=== PATIENT | male | born 1965 | race Caucasian/White ===

== ENCOUNTER 2024-06-10 10:32 | Day surgery (SDC) | payer OTHER, SELFPAY ==
[2024-06-10] VITALS (10 sets, daily range): BP systolic 88–125; BP diastolic 28–67; BMI 46.4
[2024-06-10 11:39] LABS: Hematocrit 27.3 % (39.0-52.0); Hemoglobin 8.8 g/dL (13.0-18.0); Mean Corp Hgb Conc. 32.2 g/dL (33.0-37.0); Mean Corpuscular Hgb 29.1 pg (27.0-31.0); Mean Corpuscular Volume 90.4 fL (80.0-94.0); Mean Platelet Volume 9.1 fL (7.4-10.4); Platelet Count 329 10^3/uL (130-400); Red Blood Cell Count 3.02 10^6/uL (4.70-6.10); Red Cell Dist. Width 16.4 % (11.5-14.5); White Blood Cell Count 8.6 10^3/uL (4.8-10.8)
[2024-06-10] MEDS: PERIDEX 0.12% ORAL RINSE 15 ML PO (11:44)
[2024-06-10] MEDS: BACTROBAN NASAL 1 GRAM NASAL (11:45)
[2024-06-10] MEDS: NSS 500 IV (11:45)
[2024-06-10 11:50] LABS: APTT 24.5 Sec (23.4-35.0); INR 1.13; PT 14.4 Sec (11.4-14.6)
[2024-06-10 12:30] LABS: Blood Urea Nitrogen 13 mg/dl (9-20); Calcium 9.3 mg/dl (8.4-10.2); Carbon Dioxide 25 mmol/L (22-30); Chloride 102 mmol/L (98-107); Estimated Creatinine Clearance 124 ml/min; Glucose 239 mg/dl (70-99); Potassium 4.7 mmol/L (3.5-5.1); Sodium 133 mmol/L (135-145); eGFR > 60.00
[2024-06-10] MEDS: NOVOLOG vial 3 UNITS SC ×2 (13:12→15:28)
[2024-06-10 13:19] LABS: Glucose - Point of Care 313 mg/dl (70-99)
--- NOTE | 2024-06-10 15:11 | W.SUR.PREOP ---
Pre-Operative Surgical Note
-
I have examined this patient prior to the performance of the scheduled procedure.
The patient's condition is unchanged from the time of the current History and
Physical and the patient is able to undergo the scheduled procedure.
--- NOTE | 2024-06-10 15:11 | OR.RPT ---
Operative Report
Operative Report
Date of Operation: 06/10/2024
Pre Op Diagnosis: Suspected temporal arteritis
Post Op Diagnosis: Suspected temporal arteritis
Procedure: BILATERAL temporal artery biopsies
Surgeon: Rajinder Spencer III, MD
Weft Straightener: Reji Quick MD PhD PGY-6
Anesthesia: Sedation/local
Complications: None
Estimated Blood Loss: Minimal
History and Indications for Procedure: 59-year-old male with symptom constellation concerning for temporal arteritis. We are asked to provide temporal artery biopsies.
Procedure in Detail: Dane Aguilar was correctly identified and placed supine on the operating table. After adequate induction of anesthesia the hair overlying the bilateral temporal regions was shaved. The temporal arteries were visualized using
ultrasound guidance bilaterally and appropriate skin incisions were marked bilaterally. The bilateral temporal regions were then prepped and draped in the usual sterile fashion. The patient received preoperative antibiotics. A timeout procedure
was performed with the nursing and anesthesia staff confirming the patient's identity as well as the nature and laterality of the procedure.
Bilateral temporal artery biopsies were performed one at a time in the same manner as follows: Local anesthesia was infiltrated into the skin and subcutaneous tissue at the skin sierra. A skin incision was made over the temporal skin sierra.
Electrocautery and sharp dissection were used to expose the temporal artery. After adequate length of temporal artery had been exposed within the wound bed the proximal and distal ends were ligated with silk ties and small metal clips. The
intervening artery segment was transected proximally and distally and removed. The artery segment was verbally identified according to laterality and passed off to the back table to be labeled and sent to pathology. The wound was then closely
inspected for hemostasis which was achieved. The wound was irrigated with saline solution.
Each wound was closed in layers. Skin glue was applied to each incision bilaterally.
The patient tolerated the procedure well and was taken to the recovery room in good condition.
Attestation: I was present and responsible for the entire procedure
Signed:
Rajinder Spencer III, MD
[facility]
[phone] ([phone])
--- NOTE | 2024-06-10 15:20 | W.SUR.POST ---
Surgical Immediate Post Op
Note
Pre Op Diagnosis: Giant cell arteritis
Post Op Diagnosis: Giant cell arteritis
Procedure Performed: Bilateral temporal artery biopsy
Primary Surgeon: Rajinder Spencer MD
Secondary Surgeons: Reji Quick MD, PhD
Anesthesia: Per Anesthesia
Estimated Blood Loss: 2 cc
Fluids: Per Anesthesia
Drains/Shunts: None
Specimens/Cultures: Temportal arteries x2
Doppler/Duplex/Angio (Y/N): No
Complications: None
Operative Findings: Bilateral temporal incisions and resection of temporal arteries
[2024-06-10 15:27] LABS: Glucose - Point of Care 304 mg/dl (70-99)
== END 2024-06-10 16:39 | disposition home or self-care (01) ==
LOC: CATH 10:32
PROVIDERS: ATTENDING PHYSICIAN Surgery Vascular Surgery; FAMILY PHYSICIAN Family Medicine; OTHER PHYSICIAN Internal Medicine Cardiovascular Disease
DX: Z09 Encounter for follow-up examination after completed treatment for conditions other than malignant neoplasm (principal); E11.9 Type 2 diabetes mellitus without complications; Z95.5 Presence of coronary angioplasty implant and graft; Z79.82 Long term (current) use of aspirin; Z79.84 Long term (current) use of oral hypoglycemic drugs; Z79.899 Other long term (current) drug therapy; Z79.01 Long term (current) use of anticoagulants; Z79.52 Long term (current) use of systemic steroids; H54.61 Unqualified visual loss, right eye, normal vision left eye
CPT/HCPCS: 37609; 88305; 80048; 82962; 85027; 85610; 85730; 88313; 93005

== ENCOUNTER 2024-07-03 13:34 | Emergency (ER) | payer OTHER, SELFPAY ==
[2024-07-03] VITALS (15 sets, daily range): BP systolic 82–129; BP diastolic 41–103; BMI 43.7
--- NOTE | 2024-07-03 13:38 | ED.PDOC.TRB ---
ED Provider Triage
-
Patient seen by provider in Triage?: Seen in Triage
Here with generalized weakness. History of anemia. Recently at [facility] for the same. Had recent transfusions. He was evaluated by GI had endoscopy and colonoscopy. He feels weak today. Outpatient labs showed hemoglobin of 6.5. Labs
ordered with type and screen
[2024-07-03 14:20] LABS: ALT (SGPT) 25 U/L (0-50); AST (SGOT) 38 U/L (17-59); Albumin 4.5 g/dl (3.5-5.0); Alkaline Phosphatase 87 U/L (38-126); Blood Urea Nitrogen 7 mg/dl (9-20); Calcium 9.3 mg/dl (8.4-10.2); Carbon Dioxide 16 mmol/L (22-30); Chloride 97 mmol/L (98-107); Glucose 294 mg/dl (70-99); Potassium 4.9 mmol/L (3.5-5.1); Sodium 132 mmol/L (135-145); Total Bilirubin 0.5 mg/dl (0.2-1.3); Total Protein 6.5 g/dl (6.3-8.2); eGFR > 60.00
[2024-07-03 14:27] LABS: % Basophils 0.3 % (0-2); % Immature Granulocytes 0.8 % (0-0.5); % Lymphocytes 4.6 % (20.5-51.1); % Monocytes 2.6 % (1.7-9.3); % Neutrophils 91.7 % (42.2-75.2); Absolute Immature Granulocytes 0.1 10^3/uL (0-0.05); Absolute Lymphocytes 0.3 10^3/uL (1.2-3.4); Absolute Monocytes 0.2 10^3/uL (0.1-0.6); Absolute Neutrophils 6.8 10^3/uL (1.4-6.5); Hematocrit 22.2 % (39.0-52.0); Hemoglobin 6.9 g/dL (13.0-18.0); Mean Corp Hgb Conc. 31.1 g/dL (33.0-37.0); Mean Corpuscular Hgb 28.3 pg (27.0-31.0); Mean Platelet Volume 9.6 fL (7.4-10.4); Nucleated Red Blood Cells % 0 % (-); Platelet Count 246 10^3/uL (130-400); Red Blood Cell Count 2.44 10^6/uL (4.70-6.10); Red Cell Dist. Width 16.6 % (11.5-14.5); White Blood Cell Count 7.4 10^3/uL (4.8-10.8)
--- NOTE | 2024-07-03 15:11 | ED.GENMED ---
History of Present Illness
General
Chief Complaint: Abnormal Lab Value
Time Seen by Provider: 07/03/24 15:06
History of Present Illness
History of Present Illness:
59-year-old male with history of COPD, sleep apnea, aortic stenosis status post valve replacement, CHF, CAD, hypertension, hyperlipidemia, jgr-kjkvgcj-touvrvdgh diabetes, and chronic anemia of uncertain origin presents to the emergency department
for evaluation of low hemoglobin. Patient has been worked up as an outpatient through [facility] for this anemia over the past 2 to 3 months, has undergone colonoscopy and endoscopy that were unrevealing and is scheduled to see hematology in
2 weeks. He also reports that he has had ongoing right jaw pain in the past 2 weeks, had a recent temporal artery biopsy due to symptoms of jaw claudication that was negative. He denies black or bloody stool. He is on Coumadin due to valve
replacement
Past History
Past History
ED Past Medical History: CAD, HTN, Hypercholesterolemia and NIDDM
Social History
Tobacco: Smoker
Alcohol: Daily
Personal: Single
Family History
Family History: Other (His father had an 'aneurysm.')
Review of Systems
Review of Systems
Allergies reviewed?: Yes
All Other Systems: ROS reviewed and negative except as documented in HPI and ROS
Phy Exam
Physical Exam
Physical Exam:
GEN: Well appearing, NAD, WDWN
HEENT: Oral mucosa moist, no scleral icterus
Cardiac: Regular rate and rhythm, murmur noted consistent with valve replacement
Lung: No respiratory distress, no tachypnea, lungs clear to auscultation bilaterally
MSK: No gross deformity or injuries
Skin: Good color, generally pale, no rashes
Neuro: AO x3, moves all extremities freely
Psych: Calm, cooperative
Course
Orders/Labs/Results
Orders:
Orders
07/03/24 13:46
Type+Screen Urgent
Complete Blood Count/With Diff Urgent
Comprehensive Metabolic Panel Urgent
Ferritin Urgent
Iron Urgent
Comment: FERRITIN,TIBC,IRON ADDED ON BY FLOOR 3:30PM 07-03-24
Total Iron Binding Urgent
07/03/24 15:29
Add On- LAB Urgent
Tests Added?: ferritin, TIBC, iron
Blood Bank Products [* Blood Bank Products] Urgent
Blood Bank Products: *Packed RBC Leuko(PRBC's)
Quantity: 2
Transfuse Today: Yes
Reason: Anemia
CT Facial Bones W/ Iv Contrast Urgent
Comment:
Reason For Exam: R mandibular dental infection
07/03/24 15:33
Oxycodone [Roxicodone] 10 mg PO NOW STA
07/03/24 15:45
Prothrombin Time Urgent
07/03/24 20:27
Oxycodone [Roxicodone] 10 mg PO NOW STA
Abnormal Lab Results
07/03/24 07/03/24
13:46 15:45
RBC 2.44 L 10^6/uL
(4.70-6.10)
Hgb 6.9 L* g/dL
(13.0-18.0)
Hct 22.2 L %
(39.0-52.0)
MCHC 31.1 L g/dL
(33.0-37.0)
RDW 16.6 H %
(11.5-14.5)
Abs Immat Gran (auto) 0.1 H 10^3/uL
(0-0.05)
Absolute Neuts (auto) 6.8 H 10^3/uL
(1.4-6.5)
Absolute Lymphs (auto) 0.3 L 10^3/uL
(1.2-3.4)
Immature Gran % 0.8 H %
(0-0.5)
Neutrophils % 91.7 H %
(42.2-75.2)
Lymphocytes % 4.6 L %
(20.5-51.1)
PT 40.2 H Sec
(11.4-14.6)
Sodium 132 L mmol/L
(135-145)
Chloride 97 L mmol/L
(98-107)
Carbon Dioxide 16 L mmol/L
(22-30)
BUN 7 L mg/dl
(9-20)
Glucose 294 H mg/dl
(70-99)
TIBC 490 H ug/dl
(261-462)
Ferritin 11.8 L ng/ml
(17.9-464.0)
Crossmatch IS Only See Detail
07/03/24 13:46
07/03/24 13:46
Vital Signs
Initial and Last Documented VS:
Initial Vital Signs
Temp Pulse Resp BP Pulse Ox
99.1 F 114 18 124/69 97
07/03/24 13:36 07/03/24 13:36 07/03/24 13:36 07/03/24 13:36 07/03/24 13:36
Last Documented Vital Signs
Temp Pulse Resp BP Pulse Ox
98.2 F 99 17 129/56 97
07/03/24 20:26 07/03/24 20:26 07/03/24 20:26 07/03/24 20:26 07/03/24 18:17
MDM/Problems Addressed
MDM/Problems Addressed:
Patient has undergone extensive outpatient workup for anemia through gastroenterology with upper and lower endoscopy. Do not see any indication for admission at this point given that he is clinically stable and improved with blood transfusions,
there is no evidence at this time of blood loss anemia. Recommend outpatient hematology follow-up. In regards of his jaw pain he had a previous outpatient temporal artery biopsy that was negative, there is evidence of a gingival erosion with
exposed bony tissue to the right lower jaw, patient is status post dental extractions, CT shows no evidence for abscess. He will need to follow-up with a dentist to evaluate this further, due to his extensive medical history will treat with
prophylactic antibiotic
*Critical Care Note
Total Time (30-74mins, 75-104mins- exclusive of procedures): Not Applicable
ED Attending Note
-
Portions of this chart may have been created with voice recognition software.� Occasional wrong word or��sound alike� substitutions may have occurred due to the inherent limitations of voice recognition software.
Discharge Plan
Departure
Patient Disposition: Home (Routine Discharge)
Date of Disposition: 07/03/24
Time of Disposition: 20:27
Patient with high blood pressure during this ER visit?: No
Discharge Problem:
Iron deficiency anemia
Instructions: Anemia caused by low iron in adults - Discharge instructions
Prescriptions:
New
amoxicillin 500 mg capsule
500 mg PO BID Qty: 14 0RF
No Action
aspirin 81 MG tablet,delayed release (DR/EC)
81 mg PO DAILY
metformin 1,000 MG tablet
1,000 mg PO BIDWMEAL
carvedilol 6.25 MG tablet
6.25 mg PO BID
warfarin 2.5 mg Tablet
7.5 mg PO SUMOWETHFRSA
citalopram [Celexa] 20 mg Tablet
20 mg PO DAILY
glyburide 5 mg tablet
5 mg PO BID
albuterol sulfate 90 mcg/actuation Hfa Aerosol Inhaler
2 puff INHALATION R Q6HPRN PRN (Reason: sob/wheezing)
lisinopril 2.5 mg Tablet
2.5 mg PO DAILY
pantoprazole [Protonix] 40 mg Tablet,Delayed Release (Dr/Ec)
40 mg PO BID
atorvastatin 10 mg tablet
10 mg PO HS
indapamide 2.5 mg tablet
2.5 mg PO DAILYPRN PRN (Reason: feet swelling)
prednisone 20 mg tablet
20 mg PO DAILY
warfarin 2.5 mg tablet
5 mg PO TU
amlodipine 5 mg tablet
5 mg PO DAILY
ferrous sulfate 325 mg (65 mg iron) tablet
325 mg PO DAILY
folic acid 1 mg Tablet
1 mg PO DAILY
Visbiome 112.5 billion cell Capsule
1 cap PO BID
Referrals:
Nik Lr MD [Family Provider] -
Activity Restrictions/Additional Instructions:
Follow up with your billboard mechanic
Have your hemoglobin rechecked in 3-5 days
Interventions
Interventions:
*Risk Screen - Suicide Last Done: 07/03/24 13:41
*General Assessment Last Done: 07/03/24 13:41
*Neglect/Abuse Screening Last Done: 07/03/24 13:41
ED- Fall Risk Assessment Last Done: 07/03/24 15:22
*Nursing Disposition Last Done: 07/03/24 20:44
Discharge Date and Time
Discharge Date/Time: 07/03/24 20:45
Print Language: CITIZEN OF [place]
[2024-07-03] MEDS: ROXICODONE 10 MG PO ×2 (15:42→20:32)
[2024-07-03 16:02] LABS: Iron 123 ug/dl (49-181)
[2024-07-03 16:11] LABS: Percent Saturation 25 % (20-50); Total Iron Binding Capacity 490 ug/dl (261-462)
[2024-07-03 16:15] LABS: INR 4.06; PT 40.2 Sec (11.4-14.6)
[2024-07-03 16:47] LABS: Ferritin 11.8 ng/ml (17.9-464.0)
== END 2024-07-03 20:45 | disposition home or self-care (01) ==
LOC: EMR 13:34
PROVIDERS: Physician Assistant; EMERGENCY PHYSICIAN Emergency Medicine; FAMILY PHYSICIAN Family Medicine
DX: D50.9 Iron deficiency anemia, unspecified (principal); R68.84 Jaw pain; E11.9 Type 2 diabetes mellitus without complications; J44.9 Chronic obstructive pulmonary disease, unspecified; G47.30 Sleep apnea, unspecified; I35.0 Nonrheumatic aortic (valve) stenosis; I11.0 Hypertensive heart disease with heart failure; I50.9 Heart failure, unspecified; E78.5 Hyperlipidemia, unspecified; F17.200 Nicotine dependence, unspecified, uncomplicated; Z95.2 Presence of prosthetic heart valve; Z79.84 Long term (current) use of oral hypoglycemic drugs; Z79.82 Long term (current) use of aspirin; Z88.8 Allergy status to other drugs, medicaments and biological substances; Z91.018 Allergy to other foods
CPT/HCPCS: 99285; 36430; 70487; 80053; 82728; 83540; 83550; 85025; 85610; 86850; 86900; 86901; 86920; P9016; Q9967

== ENCOUNTER 2024-07-13 16:37 | Inpatient (IN) | payer OTHER, SELFPAY ==
[2024-07-13] VITALS (27 sets, daily range): BP systolic 59–128; BP diastolic 24–85; BMI 44.6
[2024-07-13] MEDS: NSS 1000 IV (13:32)
[2024-07-13 13:35] LABS: % Basophils 0.1 % (0-2); % Immature Granulocytes 2.8 % (0-0.5); % Lymphocytes 9.3 % (20.5-51.1); % Monocytes 7.2 % (1.7-9.3); % Neutrophils 80.6 % (42.2-75.2); Absolute Immature Granulocytes 0.4 10^3/uL (0-0.05); Absolute Lymphocytes 1.3 10^3/uL (1.2-3.4); Absolute Neutrophils 11.4 10^3/uL (1.4-6.5); Hematocrit 18.9 % (39.0-52.0); Hemoglobin 5.8 g/dL (13.0-18.0); Mean Corp Hgb Conc. 30.7 g/dL (33.0-37.0); Mean Corpuscular Hgb 28.3 pg (27.0-31.0); Mean Corpuscular Volume 92.2 fL (80.0-94.0); Mean Platelet Volume 9.7 fL (7.4-10.4); Nucleated Red Blood Cells % 0.8 % (-); Platelet Count 323 10^3/uL (130-400); Red Blood Cell Count 2.05 10^6/uL (4.70-6.10); Red Cell Dist. Width 19.7 % (11.5-14.5); White Blood Cell Count 14.1 10^3/uL (4.8-10.8)
[2024-07-13 13:43] LABS: APTT 49.7 Sec (23.4-35.0)
--- NOTE | 2024-07-13 13:53 | ED.GENMED ---
History of Present Illness
General
Chief Complaint: Abnormal Lab Value
Time Seen by Provider: 07/13/24 13:04
History of Present Illness
History of Present Illness:
59-year-old male with history of COPD, sleep apnea, aortic stenosis status post valve replacement, CHF, CAD, hypertension, hyperlipidemia, irg-xasvpwt-hxeuedrdf diabetes, and chronic anemia of uncertain origin presents to the emergency department
for evaluation of low hemoglobin. Patient has been worked up as an outpatient through [facility] for this anemia over the past 2 to 3 months, has undergone colonoscopy and endoscopy that were unrevealing and is scheduled to see hematology in
1 week. Patient returns today after her visit here 9 days ago for recurrent symptoms of anemia. He has had multiple near syncopal events and multiple falls in the past few days. He is scheduled to see gastroenterology tomorrow. Notes that his
prior jaw pain that was noted on his last visit has improved while on antibiotics and after a dental procedure.
On arrival the patient is noted to be profoundly hypotensive and pale appearing. He appears fatigued but is otherwise alert.
Past History
Past History
ED Past Medical History: CAD, HTN, Hypercholesterolemia and NIDDM
Social History
Tobacco: Smoker
Alcohol: Daily
Personal: Single
Family History
Family History: Other (His father had an 'aneurysm.')
Review of Systems
Review of Systems
Allergies reviewed?: Yes
All Other Systems: ROS reviewed and negative except as documented in HPI and ROS
Phy Exam
Physical Exam
Physical Exam:
GEN: Pale, ill-appearing
HEENT: Oral mucosa moist, no scleral icterus
Cardiac: Regular rate
Lung: No respiratory distress, no tachypnea
Rectal: Black stool, heme positive
MSK: No gross deformity or injuries
Skin: Good color, no pallor or jaundice, no rashes
Neuro: AO x3, moves all extremities freely
Psych: Calm, cooperative
Course
Orders/Labs/Results
Orders:
Orders
07/13/24 13:09
Type+Screen Urgent
Complete Blood Count/With Diff Urgent
Comprehensive Metabolic Panel Urgent
Ferritin Urgent
Comment: ADD ON
Iron Urgent
Comment: ADD ON
PTT Urgent
Prothrombin Time Urgent
Is patient on Coumadin/Warfarin?: Unknown
Total Iron Binding Urgent
Comment: ADD ON
07/13/24 13:37
Blood Bank Products [* Blood Bank Products] Urgent
Blood Bank Products: *Packed RBC Leuko(PRBC's)
Quantity: 2
Transfuse Today: Yes
Reason: Anemia
07/13/24 13:43
Add On- LAB Urgent
Tests Added?: iron, TIBC, ferritin
07/13/24 13:45
0.9% Sodium Chloride 1000 ml [Nss] 1,000 ml IV Wide Open mls/hr
07/13/24 13:58
Emergent Blood Release Stat
Blood Bank Products: *Packed RBC Leuko(PRBC's)
Quantity: 1
Reason: Bleeding
A Blood Permit is Required for all Blood.
FOR LAB PICKUP:
Take order sheet to Blood Bank to slate picker blood products in validated cooler
Immediately return to patient care area.
Blood products released by
Blood Products picked up by
Sent to
Date and Time
07/13/24 14:05
Electrocardiogram (*1) Urgent
Reason for Study: Syncope
EKG- Treatment ONCE
07/13/24 14:06
Add On- LAB Urgent
Tests Added?: PT INR
07/13/24 14:39
Pantoprazole [Protonix IV] 80 mg IV NOW STA
07/13/24 14:45
Pantoprazole 80 mg/100 ml Nss [Protonix] 80 mg in 100 ml IV Q10H
07/13/24 14:54
Oxycodone [Roxicodone] 7.5 mg PO NOW STA
07/13/24 15:35
Blood Bank Products [* Blood Bank Products] Urgent
Blood Bank Products: *Fresh Frozen Plasma
Quantity: 2
Transfuse Today: Yes
Reason: Bleeding
07/13/24 15:48
Admit/Transfer Patient As Directed
Co-Sign Provider:
Level of Care: Inpatient admission
Assign to:: IMU- Intermediate Care
Physician / Group: Hospitalist
Diagnosis: Anemia
Reason for Hospitalization: .
Expected length of stay greater than two midnights?: Yes
ELOS- Estimated Length of Stay in days: 3
I certify the patient meets the requirements for IP care: Yes
07/13/24 15:50
Code Status As Directed
Resuscitation Status: Full Code
Abnormal Lab Results
07/13/24
13:09
WBC 14.1 H 10^3/uL
(4.8-10.8)
RBC 2.05 L 10^6/uL
(4.70-6.10)
Hgb 5.8 L* g/dL
(13.0-18.0)
Hct 18.9 L* %
(39.0-52.0)
MCHC 30.7 L g/dL
(33.0-37.0)
RDW 19.7 H %
(11.5-14.5)
Abs Immat Gran (auto) 0.4 H 10^3/uL
(0-0.05)
Absolute Neuts (auto) 11.4 H 10^3/uL
(1.4-6.5)
Absolute Monos (auto) 1.0 H 10^3/uL
(0.1-0.6)
Immature Gran % 2.8 H %
(0-0.5)
Neutrophils % 80.6 H %
(42.2-75.2)
Lymphocytes % 9.3 L %
(20.5-51.1)
PT 90.1 H Sec
(11.4-14.6)
INR > 8.0 H* D
APTT 49.7 H Sec
(23.4-35.0)
Sodium 129 L mmol/L
(135-145)
Potassium 5.3 H mmol/L
(3.5-5.1)
Chloride 96 L mmol/L
(98-107)
Carbon Dioxide 17 L mmol/L
(22-30)
BUN 27 H mg/dl
(9-20)
Glucose 285 H mg/dl
(70-99)
TIBC 475 H ug/dl
(261-462)
% Saturation 10 L %
(20-50)
Ferritin 12.2 L ng/ml
(17.9-464.0)
Total Protein 6.0 L g/dl
(6.3-8.2)
Crossmatch IS Only See Detail
07/13/24 13:09
07/13/24 13:09
Vital Signs
Initial and Last Documented VS:
Initial Vital Signs
Temp Pulse Resp BP Pulse Ox
97.8 F 98 20 103/58 100
07/13/24 12:42 07/13/24 12:42 07/13/24 12:42 07/13/24 12:42 07/13/24 12:42
Last Documented Vital Signs
Temp Pulse Resp BP Pulse Ox
97.4 F 87 14 106/51 100
07/13/24 16:21 07/13/24 16:21 07/13/24 16:21 07/13/24 16:21 07/13/24 16:21
MDM/Problems Addressed
MDM/Problems Addressed:
In summary this is a 59-year-old male with an unknown source of recurrent anemia. He was last seen here 9 days ago and given 2 units however his hemoglobin has down trended despite that transfusion. Although he had relatively recent upper and
lower endoscopies we must consider the possibility of recurrent GI bleed. His stool is heme positive but he is on oral iron so this is potentially a false positive. Patient was markedly hypotensive in the emergency department, refractory to
aggressive IV fluid resuscitation thus required emergent transfusion of O- blood products as he was recurrently syncopized and in the ED. Interestingly his blood pressure improved dramatically upon initiation of the first unit of blood and he
remained clinically stable thereafter. His INR is noted to be greater than 8, I discussed this with both cardiology as well as admitting team regarding appropriate next steps and the decision was made to administer 2 units of FFP to achieve some
degree of coagulopathy reversal but potentially minimizing the risks of clotting in the setting of his mechanical heart valve. Will be admitted to the hospitalist service for further evaluation and management
*Critical Care Note
Total Time (30-74mins, 75-104mins- exclusive of procedures): 80 minutes
comment:
Critical care time: 80 minutes
Critical care time was exclusive of: Separately billable procedures, treating other patients, and teaching time
Critical care was necessary to treat or prevent imminent or life-threatening deterioration of the following conditions: Hemorrhagic shock
Critical care time spent personally by me on the following activities:
[x] Review of old charts
[x] Obtaining history from patient or surrogate
[x] Ordering and review of the laboratory studies
[x] Ordering and review of radiographic studies
[x] Ordering and performing treatments and interventions
[x] Patient patient's response to treatment
[x] Development of treatment plan with patient or surrogate
Update Note
Update Note:
1350: Pt with repeated syncopal events, BP 41/24 despite supine positioning. Called blood bank, type and screen will complete in 15 mins. Emergent blood ordered for 1 unit of O neg due to severe hemodynamic instability and lack of improvement with
IVF
1404: Pt still mentating, BP unchanged with continued fluids. Awaiting emergent blood release
1415: Emergent blood at bedside. BP 59/24.
1431: BP markedly improved
1513: Discussed via [employer] w/ cardiology regarding possible INR reversal. At this point the patient is stable, and there has not been clear evidence for rapid/uncontrolled bleeding. Per cardiology, reversal can be considered if outweighs risk
of clotting in the setting of a mechanical valve. Will d/w admitting team
ED Attending Note
-
Portions of this chart may have been created with voice recognition software.� Occasional wrong word or��sound alike� substitutions may have occurred due to the inherent limitations of voice recognition software.
Discharge Plan
Departure
Patient Disposition: Admit
Date of Disposition: 07/13/24
Time of Disposition: 15:35
Admit to: ICU
Presentation/result/management discussed w/ accepting MD/DO: Hospitalist
Discharge Problem:
Acute blood loss anemia (ABLA), Hemorrhagic shock
Interventions
Interventions:
*Risk Screen - Suicide Last Done: 07/13/24 14:12
*General Assessment Last Done: 07/13/24 14:12
*Neglect/Abuse Screening Last Done: 07/13/24 14:12
ED- Fall Risk Assessment Last Done: 07/13/24 13:05
*ED COVID-19 Vaccine History Last Done: 07/13/24 14:12
[2024-07-13 14:05] LABS: ALT (SGPT) 27 U/L (0-50); AST (SGOT) 37 U/L (17-59); Albumin 4.1 g/dl (3.5-5.0); Alkaline Phosphatase 68 U/L (38-126); Blood Urea Nitrogen 27 mg/dl (9-20); Carbon Dioxide 17 mmol/L (22-30); Chloride 96 mmol/L (98-107); Estimated Creatinine Clearance 121 ml/min; Glucose 285 mg/dl (70-99); Potassium 5.3 mmol/L (3.5-5.1); Sodium 129 mmol/L (135-145); Total Bilirubin 0.4 mg/dl (0.2-1.3); eGFR > 60.00
[2024-07-13 14:25] LABS: PT 90.1 Sec (11.4-14.6)
[2024-07-13 14:28] LABS: Iron 50 ug/dl (49-181)
[2024-07-13 14:37] LABS: Percent Saturation 10 % (20-50); Total Iron Binding Capacity 475 ug/dl (261-462)
[2024-07-13 14:40] LABS: INR > 8.0
[2024-07-13] MEDS: PROTONIX 100 IV (14:47)
[2024-07-13] MEDS: PROTONIX IV 80 MG IV (14:47)
[2024-07-13] MEDS: ROXICODONE 7.5 MG PO (14:58)
--- NOTE | 2024-07-13 15:28 | HPS.HSE ---
Family Physician
-
Family Physician: Nik Lr
Chief Complaint
-
Symptomatic anemia with fainting episodes at home
History of Present Illness
59 years old male who was brought into the emergency room by his sister for feeling weakness and having low hemoglobin. Patient has history of anemia with gastrointestinal bleeding. He reported that he had multiple fainting episodes at home and
was not feeling well in the last few days. In the emergency room, he was significantly hypotensive with a blood pressure 65/37 and was having altered mentation, in and out of consciousness during examination. Patient was immediately resuscitated
with IV fluid and blood transfusion, his blood pressure improved to systolic blood pressure 114/49. He did not need vasopressors. His mentation improved and he was able to give a history.
Patient reported history of back stools at times, no increased frequency and he was not sure because he takes iron pills. No rectal bleeding. He had recent upper and lower endoscopic evaluation addition to capsule endoscopy evaluation at [facility] around April 2024. He was told that he he might have minor leak in his intestine. He was also advised to follow with community educator in the outpatient setting. Patient was recently taking prednisone for suspected temporal arteritis that was
later ruled out by biopsy result. He stopped the steroid therapy. He denied nausea, vomiting or abdominal pain.
Medical History
Past Medical History
Past Medical History: Reports Other (Coronary artery disease, sleep apnea, tobacco abuse, obesity, hypertension, hyperlipidemia, diabetes, aortic stenosis, history of GI bleeding)
Past Surgical History: Reports Other (No recent major surgery)
Social History
Tobacco: Former Smoker
Alcohol: Daily
Drug: None
Personal:
Living: With Family
Employment: Employed (He works from home)
Family History
Family History: Other (Father had aortic aneurysm.)
Allergies / Home Medications
Allergies reflects when Allergies were last updated in [employer].
Home Medications with original date entered in [employer]
Allergy/Medication List:
Allergies
Allergy/AdvReac Type Severity Reaction Status Date / Time
atorvastatin calcium Allergy PAIN Verified 07/13/24 12:45
[From Lipitor]
dapagliflozin [From Farxiga] Allergy Rash Verified 07/13/24 12:45
fish derived Allergy THROAT Verified 07/13/24 12:45
ITCHED
nitroglycerin Allergy hypotension Verified 07/13/24 12:45
Home Medications
aspirin 81 mg tablet,delayed release 81 mg PO DAILY Blood clot prevention/tx 07/24/13
metformin 1,000 mg tablet 1,000 mg PO BID Diabetes 08/29/13
carvedilol 6.25 mg tablet 6.25 mg PO BID heart condition 04/02/21
citalopram 20 mg tablet (Celexa) 20 mg PO DAILY Mental Health/Anxiety 09/16/22
warfarin 2.5 mg tablet 7.5 mg PO SUMOWEFRSA Blood clot prevention/tx 09/16/22
glyburide 5 mg tablet 5 mg PO BID Diabetes 09/18/22
albuterol sulfate 90 mcg/actuation aerosol inhaler 2 puff inhalation R Q6HPRN PRN sob/wheezing 06/06/24
lisinopril 2.5 mg tablet 2.5 mg PO DAILY 06/06/24
Lactobac no.2-Bifidobac no.1-S. thermo 112.5 billion cell capsule (Visbiome) 1 cap PO BID 07/03/24
amlodipine 5 mg tablet 5 mg PO DAILY 07/03/24
atorvastatin 10 mg tablet 10 mg PO HS 07/03/24
ferrous sulfate 325 mg (65 mg iron) tablet 325 mg PO DAILY 07/03/24
folic acid 1 mg tablet 1 mg PO DAILY 07/03/24
indapamide 2.5 mg tablet 2.5 mg PO DAILYPRN PRN feet swelling 07/03/24
warfarin 2.5 mg tablet 5 mg PO TU 07/03/24
Magic Mouth Wash 15 ml mucous membrane BID 07/13/24
amoxicillin 500 mg capsule 500 mg PO Q8H 07/13/24
benzocaine 10 % mucosal gel 1 applic mucous membrane BID 07/13/24
hydrocodone 7.5 mg-acetaminophen 300 mg tablet 1 tab PO Q6HPRN PRN severe tooth pain 07/13/24
Review of Systems
-
History Source: Patient
A 12 point ROS was completed and negative except as noted: Yes
Constitutional: Reports Fatigue; Denies Fever or Chills
EENT: Denies Sore Throat
Respiratory: Denies Cough or Trouble Breathing
Cardiac: Denies Chest Pain
Abdomen/GI: Reports Black Stools; Denies Abdominal Pain, Nausea, Vomiting or Bloody Stools
: Denies Dysuria or Frequency
Musculoskeletal: Denies Joint Swelling
Skin: Denies Itching or Rash
Neurological: Reports Weakness
Endocrine: Denies Temp Intolerance
Hematologic/Lymphatic: Denies Bruising
Psych: Denies Anxiety
Physical Exam
Vital Signs
Vital Signs
Temp Pulse Resp BP Pulse Ox
97.3 F 89 19 99/56 100
07/13/24 14:34 07/13/24 14:34 07/13/24 14:34 07/13/24 14:34 07/13/24 14:34
Physical Exam
General: Comfortable and Conversant
HEENT: Anicteric, Moist mucous membranes and Atraumatic
Respiratory: Clear
Cardiac: S1/S2 and Other (Positive mechanical click)
GI: Soft, Non Tender, Non Distended and Normal Bowel Sounds
Musculoskeletal: No Clubbing, No Cyanosis and No Edema
Skin: Warm; No Jaundice
Neuro: AO x 3 and Nonfocal/grossly intact
Psych: Calm and Intact Judgment/Insight
Laboratory Results
-
07/13/24 13:09
07/13/24 13:09
Laboratory Results
PT 90.1 Sec (11.4-14.6) H 07/13/24 13:09
INR > 8.0 H* D 07/13/24 13:09
APTT 49.7 Sec (23.4-35.0) H 07/13/24 13:09
Total Bilirubin 0.4 mg/dl (0.2-1.3) 07/13/24 13:09
AST 37 U/L (17-59) 07/13/24 13:09
ALT 27 U/L (0-50) 07/13/24 13:09
Alkaline Phosphatase 68 U/L (38-126) 07/13/24 13:09
Impression/Plan
-
#Hemorrhagic shock due to acute on chronic blood loss anemia, exacerbated by use of blood pressure medications
Hypercoagulopathy secondary to Coumadin use with recent use of prednisone
Seems to stabilized after volume replacement. Monitor in IMU
Hold Coumadin, give FFP, recheck INR
IV Protonix, although patient denied abdominal pain but he reported history of prednisone intake. He takes aspirin for coronary artery disease
Hold blood pressure medications for now
Patient did not need pressure support medications
Continue blood transfusion, order 3 units total, repeat complete blood count after transfusion
# Acute on chronic blood loss anemia exacerbated by use of Coumadin, aspirin. Hemoglobin on presentation 5.8, last hemoglobin in June 12 was 6.9.
Patient has history of black stools/melena. Status post workup in last 6 months according to the patient and [facility], we do not have records of the results. Per patient, no source found but was told minor leak in the intestine.
Patient denied nausea, vomiting, abdominal pain. No recent diarrhea. No active rectal bleeding. So utility of bleeding scan is limited in the setting.
Will consult GI for further management.
Consult cardiology. Primary harvesting contractor Dr. Downing.
# Leukocytosis reactive. No fever
# Hyponatremia
Patient is not to have low sodium. Will monitor and repeat BMP he seems to be fully oriented and following commands
#Hyperkalemia, monitor on telemetry. Do EKG. Control hyperglycemia.
Repeat BMP
Give Lokelma
# Mild metabolic acidosis, likely secondary to shock.
Check lactic acid
# Recent steroid therapy for presumed giant cell arteritis that was later ruled out by biopsy
#History of Nonrheumatic aortic (valve) stenosis status post [place] mechanical AVR 04/07/2021
He takes Coumadin daily.
#History of obstructive sleep apnea. Noncompliant with CPAP
#Former smoker
#Morbid obesity, BMI 44
#Type 2 diabetes
Avoid hypoglycemia
Hold metformin
Order insulin sign scale
#History of essential hypertension. Hold blood pressure medication while hypotensive and reintroduce once stabilizes
#History of left carotid artery stenosis
#History of hyperlipidemia
# History of coronary artery disease. No chest pain. Monitor on telemetry
Total critical time spent to see the patient, examine the patient on the floor, review data and lab results, and discuss the treatment plan with the patient, consultants, ED doctor and nursing staff around 120 minutes
[2024-07-13 16:35] LABS: Ferritin 12.2 ng/ml (17.9-464.0)
[2024-07-13] MEDS: LOKELMA 10 GRAM PO (18:46)
[2024-07-13] MEDS: ROXICODONE 5 MG PO ×2 (18:46→22:53)
[2024-07-13 19:01] LABS: Glucose - Point of Care 223 mg/dl (70-99)
[2024-07-13] MEDS: NOVOLOG FLEXPEN-MODERATE RESISTANCE 3 UNITS SC (19:08)
[2024-07-13] MEDS: LIPITOR PO (20:55)
--- NOTE | 2024-07-13 21:06 | PTCARENOTE ---
Pt received at 19:00. Pt AOx3, pleasant. HR 95, SR. Palpable pulses. RA, breath sounds clear. 2nd unit FFP transfused, and 2nd unit PRBCs transfusing. Safe environment maintained, call linares within reach.
[2024-07-13] MEDS: AMOXIL 500 MG PO (21:56)
[2024-07-13 23:07] LABS: Glucose - Point of Care 227 mg/dl (70-99)
[2024-07-14] VITALS (12 sets, daily range): BP systolic 97–130; BP diastolic 36–99
[2024-07-14] MEDS: PROTONIX 100 IV ×3 (00:27→20:33)
[2024-07-14 00:52] LABS: Hematocrit 21.1 % (39.0-52.0); Hemoglobin 6.9 g/dL (13.0-18.0)
[2024-07-14 01:01] LABS: Blood Urea Nitrogen 19 mg/dl (9-20); Calcium 8.7 mg/dl (8.4-10.2); Carbon Dioxide 21 mmol/L (22-30); Chloride 100 mmol/L (98-107); Estimated Creatinine Clearance 121 ml/min; Glucose 156 mg/dl (70-99); Potassium 4.3 mmol/L (3.5-5.1); Sodium 133 mmol/L (135-145); eGFR > 60.00
--- NOTE | 2024-07-14 01:31 | W.PN.UPDATE ---
Addendum entered and electronically signed by BRIANNA العراقي 07/14/24 05:11:
correction INR >8 at 1PM
Original Note:
Update Note
Progress Note Update
hgb 6.9 at MN, INR 1PM, patient stable, VS stable, will order one unit of PRBC, labs in AM.
[2024-07-14] MEDS: ROXICODONE 5 MG PO ×5 (02:56→21:33)
[2024-07-14 06:16] LABS: Hematocrit 22.6 % (39.0-52.0); Hemoglobin 7.5 g/dL (13.0-18.0); Mean Corp Hgb Conc. 33.2 g/dL (33.0-37.0); Mean Corpuscular Hgb 29.3 pg (27.0-31.0); Mean Corpuscular Volume 88.3 fL (80.0-94.0); Mean Platelet Volume 9.4 fL (7.4-10.4); Platelet Count 147 10^3/uL (130-400); Red Blood Cell Count 2.56 10^6/uL (4.70-6.10); Red Cell Dist. Width 16.9 % (11.5-14.5); White Blood Cell Count 5.8 10^3/uL (4.8-10.8)
[2024-07-14 06:24] LABS: PT 46.7 Sec (11.4-14.6)
[2024-07-14 06:39] LABS: Blood Urea Nitrogen 17 mg/dl (9-20); Calcium 8.3 mg/dl (8.4-10.2); Carbon Dioxide 25 mmol/L (22-30); Chloride 101 mmol/L (98-107); Estimated Creatinine Clearance 121 ml/min; Glucose 133 mg/dl (70-99); Sodium 135 mmol/L (135-145); eGFR > 60.00
[2024-07-14 06:40] LABS: INR 5.01
[2024-07-14] MEDS: AMOXIL 500 MG PO (07:29)
--- NOTE | 2024-07-14 08:24 | CON.CAR ---
Addendum entered and electronically signed by Lloyd Juárez MD 07/14/24 11:26:
I interviewed and examined the patient independently. I discussed the patient with resident MD Dr. Monroe. I agree with the plan with changes/additions per this addendum.
59 yo male with PMH of s/p mechanical AVR and CABG 04/2021, prior stenting 2012, HTN, DM admitted with symptomatic anemia, Hgb 5.8, and supratherapeutic INR >8. He denies chest pain. Exam with RRR, no murmurs, no edema. Hgb 5.8-->7.5. INR was
>8 on admit, and is now 5.
Severe anemia, suspected GI bleed. Life threatening. s/p 3 units pRBC, 2 FFP. Holding ASA and coumadin. With recurrent GI bleed, to determine if we resume coumadin only when stable.
Supratherapeutic INR. With current Abx use for jaw surgery.
Also needs to stop NSAID's and ETOH.
Original Note:
Consultation
Consultation Request
Date/Time Consultation Requested: 07/13/2024 18:21
Date/Time Consultation Performed: 07/14/2024 08:25
Requesting Provider: Dr Josefina Stubbs
Performing Provider: Dr Lloyd Juárez
Reason for Consultation: GI bleed, on Coumadin Use for MVR
Medical History
-
Chief Complaint: fatigue
History of Present Illness:
Mr Dane Aguilar is a 59-year-old male with CAD(ISMAEL 2012 to RCA, LAD and Left Circumflex), Aortic Stenosis s/p [place] Mechanical Aortic Valve replacement(on Coumadin) and CABG X1 on 04/07/2021, HTN, HLD, DEL, NIDDM, obesity and former smoker who
presented to ED yesterday for ongoing fatigue. Patient states fatigue has been ongoing for the past 2 months. He has been getting worked up as an outpatient at [facility] for anemia and has undergone colonoscopy and endoscopy. Patient
states he has also been experiencing ongoing jaw pain and mild headaches that has caused him to use Advil at higher dosages over the past few weeks. Patient with history of alcohol use. He states he drinks 3-4 beers per night. He also admits to
Dental work last week with adding antibiotics. On presentation to the ED his INR was noted to be greater than 8.0, Hemoglobin 5.8. He was transfused 2 units of FFP with improvement to hemoglobin levels. He had a temp of 97.8, blood pressure of
65/37, oxygenation on room air at 100%. His ECG was nonischemic and with sinus rhythm. At the bedside today, he denies chest pain, shortness of breath, palpitations.
Past Medical History
Past Medical History: Other (CAD(ISMAEL 2012 to RCA, LAD and Left Circumflex), Aortic Stenosis s/p [place] Mechanical Aortic Valve replacement(on Coumadin) and CABG X1 on 04/07/2021, HTN, HLD, DEL, NIDDM, obesity and former smoker)
Past Surgical History: Other (Stents to LAD/circumflex 2012, stenting of RCA, aortic valve replacement with 23 mm SJM [place] mechanical valve and coronary artery bypass grafting using GSV to PDA 04/07/21)
Social History
Tobacco: Former Smoker
Alcohol: Daily (3-4 drinks per night)
Drug: None
Living: With Family
Family History
Family History: Other (Father, , attic aneurysm at 66)
Allergies / Home Medications
Allergy/AdvReac Type Severity Reaction Status Date / Time
atorvastatin calcium Allergy PAIN Verified 07/13/24 12:45
[From Lipitor]
dapagliflozin [From Farxiga] Allergy Rash Verified 07/13/24 12:45
fish derived Allergy THROAT Verified 07/13/24 12:45
ITCHED
nitroglycerin Allergy hypotension Verified 07/13/24 12:45
�Medication �Instructions �Recorded �Confirmed �Type
aspirin 81 mg tablet,delayed 81 mg PO DAILY Blood clot 07/24/13 07/13/24 History
release prevention/tx
metformin 1,000 mg tablet 1,000 mg PO BID Diabetes 08/29/13 07/13/24 History
carvedilol 6.25 mg tablet 6.25 mg PO BID heart condition 04/02/21 07/13/24 History
citalopram 20 mg tablet (Celexa) 20 mg PO DAILY Mental 09/16/22 07/13/24 History
Health/Anxiety
warfarin 2.5 mg tablet 7.5 mg PO SUMOWETHFRSA Blood clot 09/16/22 07/13/24 History
prevention/tx
glyburide 5 mg tablet 5 mg PO BID Diabetes 09/18/22 07/13/24 History
albuterol sulfate 90 mcg/actuation 2 puff inhalation R Q6HPRN PRN 06/06/24 07/13/24 History
aerosol inhaler sob/wheezing
lisinopril 2.5 mg tablet 2.5 mg PO DAILY Blood Pressure 06/06/24 07/13/24 History
Lactobac no.2-Bifidobac no.1-S. 1 cap PO BID Gastrointestinal Issue 07/03/24 07/13/24 History
thermo 112.5 billion cell capsule
(Visbiome)
amlodipine 5 mg tablet 5 mg PO DAILY Blood Pressure 07/03/24 07/13/24 History
atorvastatin 10 mg tablet 10 mg PO HS High Cholesterol 07/03/24 07/13/24 History
ferrous sulfate 325 mg (65 mg 325 mg PO DAILY Supplement 07/03/24 07/13/24 History
iron) tablet
folic acid 1 mg tablet 1 mg PO DAILY Supplement 07/03/24 07/13/24 History
indapamide 2.5 mg tablet 2.5 mg PO DAILYPRN PRN feet 07/03/24 07/13/24 History
swelling
warfarin 2.5 mg tablet 5 mg PO TU Blood Clot Prevention/Tx 07/03/24 07/13/24 History
Magic Mouth Wash 15 ml mucous membrane BID oral pain 07/13/24 07/13/24 History
amoxicillin 500 mg capsule 500 mg PO Q8H Infection 07/13/24 07/13/24 History
benzocaine 10 % mucosal gel 1 applic mucous membrane BID oral 07/13/24 07/13/24 History
pain
hydrocodone 7.5 mg-acetaminophen 1 tab PO Q6HPRN PRN severe tooth 07/13/24 07/13/24 History
300 mg tablet pain
Review of Systems
-
All other systems: Negative unless noted (Except as documented)
Physical Exam
Vital Signs
Temp Pulse Resp BP Pulse Ox
97.9 F 94 20 103/55 95
07/14/24 04:29 07/14/24 04:02 07/14/24 04:02 07/14/24 04:02 07/14/24 04:38
Lab Results
07/14/24 05:52
07/14/24 05:52
Physical Exam
General: No Apparent Distress
HEENT: Moist Mucous Membranes
Respiratory: Clear; Negative Wheezes or Crackles
Cardiac: S1/S2, Murmur (1/6 systolic murmur) and Peripheral Edema (1+ bilaterally)
GI: Non Tender and Non Distended
Neuro: Awake, Alert, Oriented and AO x 3
Psych: Calm
Impression / Plan
-
Impression/plan
Aortic stenosis s/p mechanical AVR
CAD - s/p ISMAEL to RCA, LAD and left circumflex in 2012.
-Denies Anginal episode.
-Hold Coreg due to hypotensive episode and GI bleed.
-INR on presentation >8. With current episode GI bleed, Hold Warfarin.
-Echo 09/18/2022 with LVEF 55%.
-Update Echo, Ordered today.
HLD - On atorvastatin 10 mg, continue.
Acute on Chronic Anemia
-Management Per GI
-Trend HgB, Transfuse for goal Hgb > 7.0
HTN
NIDDM
DEL
--- NOTE | 2024-07-14 08:46 | CON.GI ---
Addendum entered and electronically signed by Tylor Montalvo DO 07/14/24 10:20:
I saw and examined the patient.
The SALES ENABLEMENT LEAD's note was reviewed and I agree with the note.
Impression: Mr Aguilar is a 59 y.o male with past medical history of HTN, IDDM, prior CVA, CAD, (s/p mechanical AVR, on coumadin), and acute on chronic KRISTIAN (with prior unremarkable GI w/u in 04/2024) who presented with severe symptomatic anemia and
Hgb 5.8 in setting of supratherapeutic INR with INR > 8. No bloody stools or melena prior to admission, only noting dark brown stools which has been longstanding since he started iron supplementation. Heme (+) brown stool in ED. Of note, recently
underwent bi-directional endoscopic evaluation for his acute on chronic anemia and KRISTIAN back in April 2024 (unable to view reports) at OSH ([facility]). He does note he was diagnosed with mild gastritis (felt 2/2 NSAIDs - unclear if biopsies were
obtained for H pylori) along with few benign polyps which were removed. He received a total of 5 uPRBCs and 2 FFP during that admission. He was supposed to have a follow-up appointment today with [facility] GI group at [facility] for consideration of
further studies (repeat VCE ?). Additionally, reports prior video capsule endoscopy around Sep 2022 for his chronic anemia as well which was reportedly normal. Denies ever being diagnosed with AVMs or other known vascular lesions. He has required
several transfusions over the past several months and follows closely with Hematology. He is on ASA 81 and warfarin but no other antiplatelets or anticoagulants. No recent NSAIDs. Denies any recent medication changes, but does note recent dental
work about several days where he was prescribed an antibiotic (unable to recall). Suspect occult GI bleeding in setting of supratherapeutic INR (> 8) resulting in acute on chronic anemia and heme (+) stools.
Recommendations:
- Okay for diet as tolerated
- IV iron while inpatient
- Trend Hgb with serial CBC, transfuse for goal Hgb > 7.0
- Empiric IV PPI 40 mg BiD
- As patient is without overt GI bleeding with heme (+) brown stools and relatively recent bi-directional endoscopic evaluation, will defer repeat procedures this admission
- Will attempt to obtain prior EGD/Colon at [facility] in 2023 and prior VCE for complete medical records
- If patient has overt GI bleeding, will consider pursuing push-enteroscopy as patient has multiple risk factors for SB AVMs given his mechanical AVR
- Correction of INR as per primary team
- Avoidance of all NSAIDs, okay to continue ASA 81 mg from GI standpoint
- Hematology consulted, appreciate recs
- Needs close GI f/u after discharge
- Rest of care as outlined below
Original Note:
Consultation
-
Date/Time Consultation Requested: 07/13/241819
Date/Time Consultation Performed: 07/14/2430
Requesting Provider: Roberto Carlos Stubbs MD
Performing Provider: BRIANNA Ding, Tylor Montalvo MD
Reason for Consultation: anemia
Medical History
Chief Complaint / HPI
Chief Complaint: abnormal labs
History of Present Illness:
Pt is a 59yo with hx CAD, with mech valve, HTN, COPD, DEL, CVA, IDDM, with recurrent ER evaluation for anemia. On admission pt with hbg 5.8 with INR>8 on admission with iron studies consistent with iron deficiency. In ER patient noted with
black heme + stool. In review with patient he has hx prior anemia. He had capsule endoscopy fall 2021 or fall 2022. Did not recall any abnormalities. He then began in April with intractable anemia. He recall prior to April taking increased NSAID
for shoulder pain. He then had EGD (gastritis per pt recall) and colon (polyps per pt recall) completed at [facility] and due 07/14 for OP follow up with [facility]. He has required transfusion in April, April, June and now July. He also
admits to Dental work last week with adding antibiotics and noted with elevated INR on admission. Pt admits to chronic PPI use but missed about 1 week as ran out of medication.
Pt admit to chronic dark brown stools as has been on chronic iron. She otherwise denies dysphagia, GERD, nausea, vomiting, abdominal pain, diarrhea, constipation or red stools.
Past Medical History
Past Medical History: CAD, COPD, CVA (with visual issues ), HTN, Hypercholesterolemia, NIDDM, Valvular Disease ( with [facility] aortic valve) and Other (obesity, DEL, CPAP, cardiomyopathy, chronic anemia)
Past Surgical History: Other (temp art biopsy )
Social History
Tobacco: Former Smoker
Alcohol: Occasional (up t o 6 beers at times )
Drug: None
Personal:
Living: With Family
Employment: Employed
Family History
Family History: Other (brother with hx colon polyps)
Allergies / Home Medications
Allergy/AdvReac Type Severity Reaction Status Date / Time
atorvastatin calcium Allergy PAIN Verified 07/13/24 12:45
[From Lipitor]
dapagliflozin [From Farxiga] Allergy Rash Verified 07/13/24 12:45
fish derived Allergy THROAT Verified 07/13/24 12:45
ITCHED
nitroglycerin Allergy hypotension Verified 07/13/24 12:45
�Medication �Instructions �Recorded
aspirin 81 mg tablet,delayed 81 mg PO DAILY Blood clot 07/24/13
release prevention/tx
metformin 1,000 mg tablet 1,000 mg PO BID Diabetes 08/29/13
carvedilol 6.25 mg tablet 6.25 mg PO BID heart condition 04/02/21
citalopram 20 mg tablet (Celexa) 20 mg PO DAILY Mental 09/16/22
Health/Anxiety
warfarin 2.5 mg tablet 7.5 mg PO SUMOWETHFRSA Blood clot 09/16/22
prevention/tx
glyburide 5 mg tablet 5 mg PO BID Diabetes 09/18/22
albuterol sulfate 90 mcg/actuation 2 puff inhalation R Q6HPRN PRN 06/06/24
aerosol inhaler sob/wheezing
lisinopril 2.5 mg tablet 2.5 mg PO DAILY Blood Pressure 06/06/24
Lactobac no.2-Bifidobac no.1-S. 1 cap PO BID Gastrointestinal Issue 07/03/24
thermo 112.5 billion cell capsule
(Visbiome)
amlodipine 5 mg tablet 5 mg PO DAILY Blood Pressure 07/03/24
atorvastatin 10 mg tablet 10 mg PO HS High Cholesterol 07/03/24
ferrous sulfate 325 mg (65 mg 325 mg PO DAILY Supplement 07/03/24
iron) tablet
folic acid 1 mg tablet 1 mg PO DAILY Supplement 07/03/24
indapamide 2.5 mg tablet 2.5 mg PO DAILYPRN PRN feet 07/03/24
swelling
warfarin 2.5 mg tablet 5 mg PO TU Blood Clot Prevention/Tx 07/03/24
Magic Mouth Wash 15 ml mucous membrane BID oral pain 07/13/24
amoxicillin 500 mg capsule 500 mg PO Q8H Infection 07/13/24
benzocaine 10 % mucosal gel 1 applic mucous membrane BID oral 07/13/24
pain
hydrocodone 7.5 mg-acetaminophen 1 tab PO Q6HPRN PRN severe tooth 07/13/24
300 mg tablet pain
Review of Systems
-
History Source: Patient
Constitutional: Reports Fatigue
EENT: Reports No Symptoms
Respiratory: Reports Trouble Breathing
Abdomen/GI: Reports Other (chronic dark stools with iron, ? tarry stools)
: Reports Frequency
Musculoskeletal: Reports Other (shoulder pain with NSAID use in March )
Neurological: Reports Weakness
Endocrine: Reports No Symptoms
Hematologic/Lymphatic: Reports Bleeding
Vital Signs
Temp Pulse Resp BP Pulse Ox
97.9 F 94 20 103/55 95
07/14/24 04:29 07/14/24 04:02 07/14/24 04:02 07/14/24 04:02 07/14/24 04:38
Physical Exam
Exam
General: Well Developed, Well Nourished and No Apparent Distress
HEENT: Normocephalic and Anicteric
Respiratory: Clear
Cardiac: Regular Rhythm and Peripheral Edema
GI: Soft, Non Tender, Non Distended and Other (large abdomen )
Rectal: Other (black heme + in ER)
Musculoskeletal: No Clubbing
Skin: Warm and Dry
Neuro: Awake, Alert and AO x 3
Psych: Calm
Results
WBC 5.8 10^3/uL (4.8-10.8) 07/14/24 05:52
Hgb 7.5 g/dL (13.0-18.0) L 07/14/24 05:52
Hct 22.6 % (39.0-52.0) L 07/14/24 05:52
MCV 88.3 fL (80.0-94.0) 07/14/24 05:52
Plt Count 147 10^3/uL (130-400) D 07/14/24 05:52
Absolute Neuts (auto) 11.4 10^3/uL (1.4-6.5) H 07/13/24 13:09
PT 46.7 Sec (11.4-14.6) H 07/14/24 05:52
INR 5.01 H* D 07/14/24 05:52
APTT 49.7 Sec (23.4-35.0) H 07/13/24 13:09
Sodium 135 mmol/L (135-145) 07/14/24 05:52
Potassium 4.0 mmol/L (3.5-5.1) 07/14/24 05:52
Chloride 101 mmol/L (98-107) 07/14/24 05:52
Carbon Dioxide 25 mmol/L (22-30) 07/14/24 05:52
BUN 17 mg/dl (9-20) 07/14/24 05:52
Creatinine 0.8 mg/dL (0.7-1.3) 07/14/24 05:52
Calcium 8.3 mg/dl (8.4-10.2) L 07/14/24 05:52
Total Bilirubin 0.4 mg/dl (0.2-1.3) 07/13/24 13:09
AST 37 U/L (17-59) 07/13/24 13:09
ALT 27 U/L (0-50) 07/13/24 13:09
Alkaline Phosphatase 68 U/L (38-126) 07/13/24 13:09
Diagnostic Image Results:
Prior GI Procedures:
EGD: last April 2024 [facility] recall gastritis
Colonoscopy: Last April 2024 recall polyps
capsule: fall 2021 or 2022 did no recall any abnormalities
Assessment / Plan
-
Pt is a 59yo with hx CAD, with mech valve, HTN, COPD, CVA, DEL,, IDDM, with recurrent ER evaluation for anemia. On admission pt with hbg 5.8 with INR>8 on admission with iron studies consistent with iron deficiency. In ER patient noted with
black heme + stool. In review with patient he has hx prior anemia. He had capsule endoscopy fall 2021 or fall 2022. Did not recall any abnormalities. He then began in April with intractable anemia. He recall prior to April taking increased NSAID
for shoulder pain. He then had EGD (gastritis per pt recall) and colon (polyps per pt recall) completed at [facility] and due 07/14 for [facility] follow up with [facility]. He has required transfusion in April, April, June and now July. He also
admits to Dental work last week with adding antibiotics and noted with elevated INR on admission. Pt admits to chronic PPI use but missed about 1 week as ran out of medication.
-transfusion dependent iron deficiency anemia since April
- with mech valve on Coumadin prior to admission
--coagulopathy on admission
-s/p dental work with abx use on since Sunday
-hx NSAID use for shoulder pain in March
-LE edema on exam
other medical problems:
-HTN
-COPD
-CVA
-OBS
-IDDM
PLAN:
Etiology of anemia related GI loss with black stools and iron deficiency with elevated INR on admission vs other
Pt has required 5 units PRBC and 2 FFP since 07/03 and prior transfusion at [facility] since April
hbg up to 7.5 today cont to trend
will obtain prior EGD/colon from April and prior capsule in 2021 or 2022
cont diet for now
pt was due OP follow up today at [facility] but prefer GI follow up as his booking manager is here
consider repeat OP capsule if hbg remains stable if signs of continued bleeding consider inpatient EGD
NSAID avoidance
? INR elevated with recent addition antibiotics for dental work-- currently remains on Amoxicillin
-
-
Thank you for consultation and allowing me to participate in the patient's care. Please call the emergency communications officer GI physician during the after hours with any questions or concerns.
[2024-07-14 09:13] LABS: Glucose - Point of Care 191 mg/dl (70-99)
[2024-07-14] MEDS: NOVOLOG FLEXPEN-MODERATE RESISTANCE 1 UNITS SC ×2 (09:23→18:13)
--- NOTE | 2024-07-14 10:12 | CON.ONC ---
Addendum entered and electronically signed by Suzanne Collado MD 07/14/24 21:36:
59 yo man on warfarin for aortic valve replacement. Multiple recent hospitalizations for GIB with elevated INR.
He has a home INR monitor and Cardiology manages his warfarin.
Over the last week he has been on antibiotics for a tooth infection and has been unable to eat much other than eggs and grits. In this context, INR was >8 upon presentation with GIB.
During recent hospitalization at [facility], he underwent EGD showing gastritis.
He drinks alcohol 3-4 times were week as per lifetime habit. More recently he was on prednisone for possible giant cell arteritis which has now been excluded, but the prednisone also may have contributed to gastritis, GIB.
Plan d/w pt:
- D/C EtOH, suggested he substitute non-alcoholic beer when watching the [employer] game etc
- IV iron this admission
- Discussed with pt that when on abx and/or dietary change, INR likely to become supratherapeutic and he should check INR more frequently, possibly low his warfar dose temporarily while on abx
Pt has an appointment with Dr. Teague 07/21 at the [facility]. He may continue IV iron repletion as outpt. Prefers to transfer all care out of the [place] system.
Thank you for consult, will follow along with you.
Original Note:
Impression
Impression
Pt is a 59 YO M with PMH of alcohol use, GI bleed and chronic anemia presenting with fatigue and low Hb.
Plan
Plan
Continue H&H to monitor Hb. Replete as necessary, patient has received 5 units of PRBC since 07/03. Follow up OP on 07/21 with oncology scheduled.
INR likely elevated due to recent abx use and limited PO intake after dental infection. Consider Lovenox instead of warfarin.
Request records from [place] and [place] for previous scopes, video capsule and management of anemia
GI following, appreciate input on whether or not repeat scoping necessary
Continue to monitor patient for new symptoms such as bleeding in stool, urine or hemoptysis.
Patient History
History of Present Illness
Pt is a 59 YO M with hx of COPD, gastritis, sleep apnea, aortic stenosis status post valve replacement on warfarin, CHF, CAD, hypertension, hyperlipidemia, ife-lxuwzbq-byproidol diabetes, GI bleeds, alcohol use and chronic anemia of uncertain origin
presenting to for low Hb. He has a history of low Hb and gastritis, ost recently seen in the hospital 9 days ago for similar symptoms. He reports multiple witnessed falls over the weekend, without hitting head or bleeding. In ED, pt was
hypotensive (now 127/36) with Hb 6.8 & INR=8 and was given 2 units of FFP. He reports no ongoing headaches, CP, SOB, abdominal pain, hematochezia, hematuria, or hemoptysis. He does have some dark stools, but remarks that he takes iron supplements.
He states he drinks 5-6 days a week and has at least 3-6 drinks per sitting.
Past-Medical/Surgical History
COPD, sleep apnea, aortic stenosis status post valve replacement, CHF, CAD, hypertension, hyperlipidemia, xby-[id number]-phlqpvbbc diabetes, GI bleeds, alcohol use and chronic anemia of uncertain origin
Patient Medication
�Medication �Instructions �Recorded �Confirmed �Last Taken �Type
aspirin 81 mg tablet,delayed 81 mg PO DAILY Blood clot 07/24/13 07/13/24 07/13/24 History
release prevention/tx
metformin 1,000 mg tablet 1,000 mg PO BID Diabetes 08/29/13 07/13/24 07/13/24 History
carvedilol 6.25 mg tablet 6.25 mg PO BID heart condition 04/02/21 07/13/24 07/13/24 History
citalopram 20 mg tablet (Celexa) 20 mg PO DAILY Mental 09/16/22 07/13/24 07/13/24 History
Health/Anxiety
warfarin 2.5 mg tablet 7.5 mg PO [facility] Blood clot 09/16/22 07/13/24 07/12/24 History
prevention/tx
glyburide 5 mg tablet 5 mg PO BID Diabetes 09/18/22 07/13/24 07/13/24 History
albuterol sulfate 90 mcg/actuation 2 puff inhalation R Q6HPRN PRN 06/06/24 07/13/24 3 Weeks Ago History
aerosol inhaler sob/wheezing ~05/20/24
lisinopril 2.5 mg tablet 2.5 mg PO DAILY Blood Pressure 06/06/24 07/13/24 07/13/24 History
Lactobac no.2-Bifidobac no.1-S. 1 cap PO BID Gastrointestinal Issue 07/03/24 07/13/24 07/13/24 History
thermo 112.5 billion cell capsule
(Visbiome)
amlodipine 5 mg tablet 5 mg PO DAILY Blood Pressure 07/03/24 07/13/24 07/13/24 History
atorvastatin 10 mg tablet 10 mg PO HS High Cholesterol 07/03/24 07/13/24 07/12/24 History
ferrous sulfate 325 mg (65 mg 325 mg PO DAILY Supplement 07/03/24 07/13/24 07/13/24 History
iron) tablet
folic acid 1 mg tablet 1 mg PO DAILY Supplement 07/03/24 07/13/24 07/13/24 History
indapamide 2.5 mg tablet 2.5 mg PO DAILYPRN PRN feet 07/03/24 07/13/24 Unknown History
swelling
warfarin 2.5 mg tablet 5 mg PO TU Blood Clot Prevention/Tx 07/03/24 07/13/24 07/08/24 History
Magic Mouth Wash 15 ml mucous membrane BID oral pain 07/13/24 07/13/24 07/13/24 History
amoxicillin 500 mg capsule 500 mg PO Q8H Infection 07/13/24 07/13/24 07/13/24 History
benzocaine 10 % mucosal gel 1 applic mucous membrane BID oral 07/13/24 07/13/24 07/13/24 History
pain
hydrocodone 7.5 mg-acetaminophen 1 tab PO Q6HPRN PRN severe tooth 07/13/24 07/13/24 07/13/24 History
300 mg tablet pain
Active Medications
Generic Name Dose Route Start Last Admin
Trade Name Freq PRN Reason Stop Dose Admin
Acetaminophen 1,000 mg 07/13/24 18:21
Acetaminophen 500 Mg Tablet PO 08/10/24 18:20
Q6HPRN PRN
mild to mod pain
Albuterol 2 puff 07/13/24 18:21
Albuterol Hfa [90 Mcg/Dose] Inhaler INH
R Q6HPRN PRN
sob/wheezing
Protocol
Amoxicillin 500 mg 07/13/24 22:00 07/14/24 07:29
Amoxicillin 500 Mg Capsule PO 500 mg
Q8H JOVANA Administration
Atorvastatin Calcium 10 mg 07/13/24 22:00 07/13/24 20:55
Atorvastatin (Lipitor) 10 Mg Tablet PO 08/10/24 21:59 Not Given
HS JOVAAN
Dextrose 12.5 grams 07/13/24 18:21
Dextrose 50% (0.5 Grams/Ml) 50 Ml Syringe IV 08/10/24 18:20
[id number] PRN
hypoglycemia
Protocol
Glucagon 1 mg 07/13/24 18:21
Glucagon 1 Mg Vial IM 08/10/24 18:20
PRN PRN
hypoglycemia
Protocol
Pantoprazole Sodium 80 mg in 100 mls @ 10 mls/hr 07/13/24 14:45 07/14/24 00:27
Protonix IV 100 mls
Q10H JOVANA Administration
8 MG/HR
Insulin Aspart 0 units 07/13/24 18:21 07/14/24 09:23
Insulin Aspart Moderate Resistance 300 Units/3 Ml Pen.Injctr SC 08/10/24 18:20 1 units
AC JOVANA Administration
Protocol
Oxycodone HCl 5 mg 07/13/24 18:21 07/14/24 07:32
Oxycodone 5 Mg Regular Release Tablet PO 07/27/24 18:20 5 mg
Q4HPRN PRN Administration
severe pain
Sodium Chloride 0 flush 07/13/24 17:00
Sodium Chloride 0.9% (Flush) Syringe IV 08/10/24 16:59
PER PROTOCOL JOVANA
Review of Systems
-
History Source: Patient
Constitutional: Reports Weakness
EENT: Reports No Symptoms
Respiratory: Reports Cough
Cardiac: Reports Palpitations (intermittent and with significant ambulation )
GI: Reports Black Stools
: Reports No Symptoms
Musculoskeletal: Reports Edema
Skin: Reports No Symptoms
Neuro: Reports Weakness
Psych: Reports No Symptoms
Physical Exam
-
General: Well Developed, Well Nourished, No Apparent Distress, Comfortable, Conversant and Obese
GI: Soft and Distended
Musculoskeletal: No Clubbing, No Cyanosis, Edema, Right Lower Extrem and Edema, Left Lower Extrem
Skin: Warm and Dry
Psych: Calm
Labs
Lab Results
WBC 5.8 10^3/uL (4.8-10.8) 07/14/24 05:52
RBC 2.56 10^6/uL (4.70-6.10) L 07/14/24 05:52
Hgb 7.5 g/dL (13.0-18.0) L 07/14/24 05:52
Hct 22.6 % (39.0-52.0) L 07/14/24 05:52
MCV 88.3 fL (80.0-94.0) 07/14/24 05:52
MCH 29.3 pg (27.0-31.0) 07/14/24 05:52
MCHC 33.2 g/dL (33.0-37.0) 07/14/24 05:52
RDW 16.9 % (11.5-14.5) H 07/14/24 05:52
Plt Count 147 10^3/uL (130-400) D 07/14/24 05:52
MPV 9.4 fL (7.4-10.4) 07/14/24 05:52
Abs Immat Gran (auto) 0.4 10^3/uL (0-0.05) H 07/13/24 13:09
Absolute Neuts (auto) 11.4 10^3/uL (1.4-6.5) H 07/13/24 13:09
Absolute Lymphs (auto) 1.3 10^3/uL (1.2-3.4) 07/13/24 13:09
Absolute Monos (auto) 1.0 10^3/uL (0.1-0.6) H 07/13/24 13:09
Absolute Eos (auto) 0.0 10^3/uL (0-0.7) 07/13/24 13:09
Absolute Basos (auto) 0.0 10^3/uL (0-0.2) 07/13/24 13:09
Immature Gran % 2.8 % (0-0.5) H 07/13/24 13:09
Neutrophils % 80.6 % (42.2-75.2) H 07/13/24 13:09
Lymphocytes % 9.3 % (20.5-51.1) L 07/13/24 13:09
Monocytes % 7.2 % (1.7-9.3) 07/13/24 13:09
Eosinophils % 0.0 % (0-6) 07/13/24 13:09
Basophils % 0.1 % (0-2) 07/13/24 13:09
Creatinine 0.8 mg/dL (0.7-1.3) 07/14/24 05:52
Vital Signs
Vital Signs
Temp Pulse Resp BP Pulse Ox
97.9 F 94 19 127/36 95
07/14/24 04:29 07/14/24 08:34 07/14/24 08:34 07/14/24 08:34 07/14/24 04:38
[2024-07-14 12:18] LABS: Glucose - Point of Care 265 mg/dl (70-99)
[2024-07-14] MEDS: NOVOLOG FLEXPEN-MODERATE RESISTANCE 5 UNITS SC (12:18)
[2024-07-14] MEDS: FERRLECIT 110 MG IV (13:32)
[2024-07-14] MEDS: FIRST-MOUTHWASH BLM SUSPENSION 5 ML PO (14:47)
--- NOTE | 2024-07-14 14:56 | CON.ID ---
Consultation
-
Date/Time Consultation Requested: July 14, 2024 1411
Date/Time Consultation Performed: July 14, 2024 1500
Requesting Provider: Dr. Darek Jimenez
Performing Provider: Dr. Patti Clemente
Reason for Consultation: On amox for dental infection, now anemia, INR > 8 on Coumadin
Chief Complaint / Past History
Chief Complaint
Weakness
History of Present Illness
59-year-old male with diabetes mellitus, CVA with right vision loss, mechanical aortic valve replacement on Coumadin who presented to the hospital with profound weakness and found to have hemoglobin of 5.8, INR greater than 8. Patient has anemia
currently undergoing workup for the past several months at outside facility. He presented to [facility] ER on July 03 with weakness. Hemoglobin was 6.9. INR 4. Patient has been having right lower jaw pain for 3 weeks. He had history of
molar extraction in the remote past. Over the years, the bone has protruded out. In the ER CAT scan of the facial bones did not show abscess. He was placed on amoxicillin 500 mg twice daily with referral to oral surgeon on last week
July 10. He was still on the amoxicillin. The oral surgeon gave him 3 more doses of amoxicillin 500 mg as prophylaxis and he underwent repair the same day. Postprocedure, the surgeon prescribed more amoxicillin 500 mg twice daily. Patient
then developed profound weakness and he fell. He presented to the hospital July 13. INR greater than 8. Hemoglobin 5.8. Stool positive for occult blood. INR today is 5. Hospitalist is concerned that the amoxicillin may contribute to the
high INR. Patient denies fevers or chills. He has process procedure jaw pain. Otherwise no headache, no sinus pain. No diarrhea.
Past History
Additional Past Medical History:
CAD
Diabetes mellitus
COPD
Aortic stenosis status post mechanical aortic valve replacement, on Coumadin
Hypertension
CVA (with right vision loss)
Chronic anemia
obstructive sleep apnea
Temporal artery biopsy 06/10/24: neg path
Allergy History:
atorvastatin calcium [From Lipitor] Allergy (Verified 07/13/24 12:45)
PAIN
dapagliflozin [From Farxiga] Allergy (Verified 07/13/24 12:45)
Rash
fish derived Allergy (Verified 07/13/24 12:45)
THROAT ITCHED
nitroglycerin Allergy (Verified 07/13/24 12:45)
hypotension
Medications Reviewed: Yes
Current Antibiotics:
Amoxicillin 500 mg p.o. every 8 hours
Social History
Tobacco: Former Smoker
Alcohol: Occasional
Drug: None
Personal:
Review of Systems
Review of Systems
General: Negative Fever or Chills
HEENT: Negative Stiff Neck, Sinus Problems, Headache or Pharyngitis
Respiratory: Negative Dyspnea or Cough
Gasteroenterology: Negative Nausea or Vomiting
Genital / Urological: Negative Dysuria or Flank Pain
Endocrine: Weakness
Skin / Hair / Nails: Negative Rash
All systems: All other systems were reviewed and were negative
Vital Signs
Temp Pulse Resp BP Pulse Ox
97.7 F 102 17 111/56 95
07/14/24 11:25 07/14/24 11:06 07/14/24 11:06 07/14/24 11:06 07/14/24 04:38
Physical Exam
Physical Exam
Constitutional: No Acute Distress and Obese
Eyes: Sclera Anicteric and Other (right pupil dilated)
Oral: Other (right mandible: healing surgical site, no drainate, no erythema)
Cardiovascular: Regular Rate and S1/S2
Gastrointestinal: Soft, Non Tender and Non Distended
Extremities: Negative Edema
Neurological: AO x 3
Lab / Diagnostic Study Results
07/14/24 05:52
07/14/24 05:52
Abs Immat Gran (auto) 0.4 10^3/uL (0-0.05) H 07/13/24 13:09
Absolute Neuts (auto) 11.4 10^3/uL (1.4-6.5) H 07/13/24 13:09
Absolute Lymphs (auto) 1.3 10^3/uL (1.2-3.4) 07/13/24 13:09
Absolute Monos (auto) 1.0 10^3/uL (0.1-0.6) H 07/13/24 13:09
Absolute Basos (auto) 0.0 10^3/uL (0-0.2) 07/13/24 13:09
Immature Gran % 2.8 % (0-0.5) H 07/13/24 13:09
Neutrophils % 80.6 % (42.2-75.2) H 07/13/24 13:09
Lymphocytes % 9.3 % (20.5-51.1) L 07/13/24 13:09
Monocytes % 7.2 % (1.7-9.3) 07/13/24 13:09
Eosinophils % 0.0 % (0-6) 07/13/24 13:09
Basophils % 0.1 % (0-2) 07/13/24 13:09
PT 46.7 Sec (11.4-14.6) H 07/14/24 05:52
INR 5.01 H* D 07/14/24 05:52
Microbiology Results
07/03/24 CT facial bones: No evidence of discrete facial bone abnormality. Mild mucosal thickening of the left maxillary sinus, likely odontogenic in nature.
Assessment / Plan
# hx of mechanical AVR on Coumadin
# Dental prophylaxis on amoxicillin since 07/03 before and continued after dental procedure (07/10)
# Supratherapeutic INR
- Suspect antibiotic decreases vitamin-K producing bacteria in the gut, resulting in elevated INR.
- He 4 days post-dental procedure. Can dc the amoxicillin.
--- NOTE | 2024-07-14 15:02 | W.PN.HOSP.TC ---
Today's Communication/Plan
-
.
Assessment / Plan
Assessment / Plan
NAD, resting comfortably in bed
Scleral anicteric
Moist mucous membranes
No JVD
CTA bilateral
Normal S1-S2 no murmurs
Morbidly obese soft nontender nondistended bowel sounds active
No peripheral pitting edema
Moves extremities spontaneously
AAOx3
Anemia chronic, acute on, possibly GI
Supratherapeutic INR
Mechanical AVR
CAD
IDDM
HTN
Dental infection
Presenting on amoxicillin with a hemoglobin of less than 7 requiring blood transfusion. Should be noted has required multiple blood transfusion since July 03 of this year. Has had multiple scopes at [place] and [place] without source of
bleeding. At this point in time hemoglobin stable hemodynamic stable. GI does not feel as repeat intervention with bidirectional scope is required and we will hold off at this time. If notable for bleeding then would consider a push enteroscopy
as he has completed bidirectional scope with video capsule endoscopy.
Hematology also following recommending outpatient follow-up
As he has a mechanical AVR would hold off on providing vitamin K antagonist as this would make him more hypercoagulable but will hasten the downtrend of the INR. Unable to change Coumadin to Eliquis deep because of mechanical AVR and additionally
there have not been enough studies to suggest benefit of oral anticoagulants with Eliquis/Xarelto and this subset population.
Supratherapeutic INR could be related to a CYP inhibitor with amoxicillin for which she was on for a dental infection. At this point amoxicillin has been held. Infectious diseases has been consulted. Would hold on/off on providing vitamin K
antagonist.
Anticipated Discharge: 24 - 48 hours
Subjective/Interval History
-
Date of Service: July 14, 2024
Seen and examined while he was getting his 2D echocardiogram. He had no acute complaints at that time. Has not noted blood in his stool nor urine. However admits to sticky dark stool. But states he is on iron tablets and not sure.
Objective Data
-
Labs:
Laboratory Results
07/14/24
05:52
WBC 5.8
Hgb 7.5 L
Hct 22.6 L
Plt Count 147 D
PT 46.7 H
INR 5.01 H* D
Sodium 135
Potassium 4.0
Chloride 101
Carbon Dioxide 25
BUN 17
Creatinine 0.8
Glucose 133 H
Calcium 8.3 L
Vital Signs:
Vital Signs
Temp Pulse Resp BP Pulse Ox
97.7 F 102 17 111/56 95
07/14/24 11:25 07/14/24 11:06 07/14/24 11:06 07/14/24 11:06 07/14/24 04:38
I&O
07/13/24 07/14/24 07/15/24
06:59 06:59 06:59
Intake Total 1187 / 1187 480 / 480
Output Total 2500 / 2500 500 / 500
Balance -1313 / -1313 -20 / -20
[2024-07-14] MEDS: CELEXA 20 MG PO (15:32)
[2024-07-14] MEDS: AMOXIL PO ×2 (15:32→15:43)
--- NOTE | 2024-07-14 15:43 | PTCARENOTE ---
Pt upset. Wants to know what the plan is by the doctor. States he was told his INR was elevated d/t Amoxicillin but he is still taking. Dr Jimenez notified and talking with pt at bedside. Nurse hardware manager also spoke with pt. Dr Cedillo gave verbal to
hold Amoxicillin while at bedside. ID consulted for Antibiotic change.
Pt OOB in chair most of the day. PRN Oxycodone for jaw pain from dental surgery. Remains on Protonix gtt.
[2024-07-14 17:44] LABS: Glucose - Point of Care 196 mg/dl (70-99)
[2024-07-14] MEDS: LIPITOR 10 MG PO (20:33)
[2024-07-14 21:48] LABS: Glucose - Point of Care 254 mg/dl (70-99)
--- NOTE | 2024-07-14 23:55 | PTCARENOTE ---
Assumed care of pt. aaox3, pleasant. c/o pain 05/14 in R jaw, prn oxy given. NSR on monitor, remains on RA. BP's running soft but denies dizziness or any complaints. Protonix gtt running. No signs of bleeding. No bm's. Urinating fine. Sleeping on and
off. No other issues at this time. Will monitor.
[2024-07-15] VITALS (11 sets, daily range): BP systolic 101–145; BP diastolic 44–70; BMI 45.2
[2024-07-15] MEDS: TYLENOL 1000 MG PO ×2 (03:15→20:50)
[2024-07-15] MEDS: ROXICODONE 5 MG PO ×5 (03:16→21:50)
[2024-07-15] MEDS: PROTONIX 100 IV (05:14)
[2024-07-15 05:38] LABS: Hematocrit 24.5 % (39.0-52.0); Hemoglobin 8.1 g/dL (13.0-18.0); Mean Corp Hgb Conc. 33.1 g/dL (33.0-37.0); Mean Corpuscular Hgb 30.3 pg (27.0-31.0); Mean Corpuscular Volume 91.8 fL (80.0-94.0); Mean Platelet Volume 9.4 fL (7.4-10.4); Platelet Count 153 10^3/uL (130-400); Red Blood Cell Count 2.67 10^6/uL (4.70-6.10); Red Cell Dist. Width 17.2 % (11.5-14.5); White Blood Cell Count 4.8 10^3/uL (4.8-10.8)
[2024-07-15 05:55] LABS: INR 3.18; PT 32.5 Sec (11.4-14.6)
[2024-07-15] MEDS: NOVOLOG FLEXPEN-MODERATE RESISTANCE 3 UNITS SC ×3 (08:40→17:47)
[2024-07-15] MEDS: FIRST-MOUTHWASH BLM SUSPENSION 5 ML PO ×2 (08:43→16:09)
[2024-07-15] MEDS: CELEXA 20 MG PO (08:48)
[2024-07-15 08:49] LABS: Glucose - Point of Care 211 mg/dl (70-99)
--- NOTE | 2024-07-15 09:25 | W.PN.GI.CBS2 ---
Today's Communication / Plan
-
H/h remains stable without bloody stools since admission. Needs VCE as outpatient and recommend ongoing supportive care as below. See plan and additional recommendations as outlined below.
Assessment / Plan
-
#Heme (+) Stools without overt GI bleeding #Occult GI bleed 2/2
#Supratherapeutic INR (INR > 8)
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
#Hx of with mech valve on Coumadin prior to admission
Mr Aguilar is a 59 y.o male with past medical history of HTN, IDDM, prior CVA, CAD, (s/p mechanical AVR, on coumadin), and acute on chronic KRISTIAN (with prior unremarkable GI w/u in 04/2024) who presented with severe symptomatic anemia and Hgb 5.8 in
setting of supratherapeutic INR with INR > 8. No bloody stools or melena prior to admission, only noting dark brown stools which has been longstanding since he started iron supplementation. Heme (+) brown stool in ED. Of note, recently underwent
bi-directional endoscopic evaluation for his acute on chronic anemia and KRISTIAN back in April 2024 (unable to view reports) at [facility] ([facility]). He does note he was diagnosed with mild gastritis (felt 2/2 NSAIDs - unclear if biopsies were obtained for H
pylori) along with few benign polyps which were removed. He received a total of 5 uPRBCs and 2 FFP during that admission. He was supposed to have a follow-up appointment today with [facility] GI group at [place] for consideration of further studies
(repeat VCE ?). Additionally, reports prior video capsule endoscopy around Sep 2022 for his chronic anemia as well which was reportedly normal. Denies ever being diagnosed with AVMs or other known vascular lesions. He has required several
transfusions over the past several months and follows closely with Hematology. He is on ASA 81 and warfarin but no other antiplatelets or anticoagulants. No recent NSAIDs. Denies any recent medication changes, but does note recent dental work about
several days where he was prescribed an antibiotic (unable to recall). Suspect occult GI bleeding in setting of supratherapeutic INR (> 8) resulting in acute on chronic anemia and heme (+) stools.
Recommendations:
- Diet as tolerated
- IV iron while inpatient
- Trend Hgb with serial CBC, transfuse for goal Hgb > 7.0. S/p 3 uPRBCs with stable H/h
- Empiric IV PPI 40 mg BiD
- As patient is without overt GI bleeding with heme (+) brown stools and relatively recent bi-directional endoscopic evaluation, will defer repeat procedures this admission
- Will attempt to obtain prior EGD/Colon at [facility] in 2023 and prior VCE for complete medical records (still pending records)
- If patient has overt GI bleeding, will consider pursuing push-enteroscopy as patient has multiple risk factors for SB AVMs given his mechanical AVR
- Correction of INR as per primary team
- Avoidance of all NSAIDs, okay to continue ASA 81 mg from GI standpoint
- Hematology consulted, appreciate recs
- Needs close GI f/u after discharge [facility] for [facility] VCE
- Rest of care as outlined below
Discussed with primary internal medicine team this AM.
GI team will sign-off. Please recontact with any questions or concerns.
Subjective
Subjective
Date of Service: July 15, 2024
- Hgb stable, corrected appropriately after 3 uPRBCs (Hgb 5s -> 8.1)
- No acute events overnight without BM since admission
Feeling well, resting comfortably in bed without abdominal pain, nausea/vomiting or bloody stools. Denies any recent bowel movement or overt blood since admission. Noting some right tooth pain but denies any fevers, chills or other constitutional
symptoms.
Objective
Data Reviewed
Laboratory Data:
Laboratory Results
07/15/24 05:24
07/14/24 05:52
Laboratory Results
PT 32.5 Sec (11.4-14.6) H 07/15/24 05:24
INR 3.18 07/15/24 05:24
APTT 49.7 Sec (23.4-35.0) H 07/13/24 13:09
Total Bilirubin 0.4 mg/dl (0.2-1.3) 07/13/24 13:09
AST 37 U/L (17-59) 07/13/24 13:09
ALT 27 U/L (0-50) 07/13/24 13:09
Alkaline Phosphatase 68 U/L (38-126) 07/13/24 13:09
Vital Signs and I&O:
Vital Signs
Temp Pulse Resp BP Pulse Ox
97.5 F 86 14 104/48 95
07/15/24 07:55 07/15/24 07:06 07/15/24 07:06 07/15/24 07:06 07/14/24 04:38
I&O
07/14/24 07/15/24 07/16/24
06:59 06:59 06:59
Intake Total 1187 / 1187 480 / 480
Output Total 2500 / 2500 2950 / 2950 400 / 400
Balance -1313 / -1313 -2470 / -2470 -400 / -400
Physical Exam
Physical Exam
HEENT: Anicteric and Moist mucous membranes
Cardiology: Normal Sinus Rhythm
Pulmonary: Other (Normal WOB on room air)
GI: Soft, Distended and Non Tender
Extremities: No Edema
Neuro: Non Focal
--- NOTE | 2024-07-15 09:30 | PTCARENOTE ---
Patient OOB to chair with min assist to chair. Patient PARISI, c/o 10/10 right jaw pain. Roxicodone and Lido S&S given with good relief. Patient is ordering breakfast, call linares in reach.
--- NOTE | 2024-07-15 09:51 | W.PN.CD ---
Addendum entered and electronically signed by Dann Downing MD 07/15/24 10:55:
I saw and evaluated the patient. I reviewed the resident�s note and agree with findings and plan as documented in the resident�s note.
Briefly 59-year-old patient well-known to me in the outpatient setting with a history of CAD status post PCI and prior, morbid obesity, mechanical AVR and recurrence GI bleeds presented with fatigue found to have significant anemia at 5.8.
Currently he is feeling better and asking when he can go home.
On exam he has a regular rate and rhythm with a mechanical A2, good click, no murmur. Lungs are clear to auscultation bilaterally, he is morbidly obese limiting the ability to evaluate his JVP, extremities have trace edema at the ankles.
Anemia has improved status post transfusion. With appropriate bump after 3 units. INR is now 3.1 after receiving FFP. Would resume warfarin tomorrow, would not resume aspirin.
He will follow-up with GI and hematology as an outpatient.
-
Regarding his chronic anticoagulation, this is in the setting of mechanical aortic valve. No need to bridge moving forward when he needs to stop warfarin given his recurrent GI bleeding with supratherapeutic INR's and bridging in the past. Will
stop his aspirin. Tomorrow, he will resume his typical dosing of 7.5 mg every day but Sunday when he will take 5 mg (he uses 2.5 mg tablets). We will arrange for an INR to be checked on . We discussed the need to avoid alcohol use, NSAID
use and alert the office when he takes antibiotics or steroids of that dosing can be appropriately adjusted.
Original Note:
Today's Communication / Plan
-
.
Impression / Plan
-
Impression/plan
Supratherapeutic INR >8 on Admission
Aortic stenosis s/p mechanical AVR
-Supratherapeutic INR with use of Amoxicillin, NSAIDS, steroids
-At this time,AVOID meds listed above.
-Will Stop Aspirin.
-Resume Warfarin Tomorrow at current regimen, 3 Tablets daily except Tuesdays 2 tablets
-Echo yesterday 07/14 with LVEF 55-60% Peak/mean gradients across the aortic valve are 26/17 mmHg respectively
CAD - s/p ISMAEL to RCA, LAD and left circumflex in 2012.
-Denies Anginal Episode
HLD - On atorvastatin 10 mg, continue.
Acute on Chronic Anemia
HTN
NIDDM
DEL
Physical Exam
Vital Signs/Labs
Vital Signs
Temp Pulse Resp BP Pulse Ox
97.5 F 86 14 104/48 95
07/15/24 07:55 07/15/24 07:06 07/15/24 07:06 07/15/24 07:06 07/14/24 04:38
07/14/24 07/15/24 07/16/24
06:59 06:59 06:59
Actual Weight 125.2 kg 126.9 kg
07/15/24 05:24
07/14/24 05:52
PT 32.5 Sec (11.4-14.6) H 07/15/24 05:24
INR 3.18 07/15/24 05:24
APTT 49.7 Sec (23.4-35.0) H 07/13/24 13:09
Physical Exam
Constitutional: No acute distress
Cardiovascular: Rhythm & rate is regular and S1S2 is normal
Respiratory: Respiratory effort normal
Neuro/Psych: Alert, Oriented and AO x 3
Data Reviewed
-
Date of Service: July 15, 2024
--- NOTE | 2024-07-15 09:55 | W.PN.ID1 ---
Date of Service
Date of Service: July 15, 2024
Today's Communication
ID will sign off.
Assessment / Plan
# hx of mechanical AVR on Coumadin
# Recent Dental prophylaxis on amoxicillin since 07/03 before and continued after dental procedure (07/10)
# Supratherapeutic INR - improved
# Recurrent acute on chronic anemia - workup in progress by GI and Rn Production.
- Suspect antibiotic decreases vitamin-K producing bacteria in the gut, resulting in elevated INR.
- Amoxicillin has been discontinued day 4 post dental procedure.
- Observe off abx.
-ID will sign off.
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
CAD
Diabetes mellitus
COPD
Aortic stenosis status post mechanical aortic valve replacement, on Coumadin
Hypertension
CVA (with right vision loss)
Acute on chronic anemia - workup in progress
obstructive sleep apnea
Temporal artery biopsy 06/10/24: neg path
Chief Complaint
-: Other (Weakness)
Subjective / Review of Systems
Feels better.
Vital Signs / Physical Exam
Vital Signs
Vital Signs
Temp Pulse Resp BP Pulse Ox
97.5 F 86 14 104/48 95
07/15/24 07:55 07/15/24 07:06 07/15/24 07:06 07/15/24 07:06 07/14/24 04:38
Physical Exam
Constitutional: No Acute Distress, Comfortable and Obese
Cardiovascular: Regular Rate
Pulmonary: Clear
Gastrointestinal: Soft, Non Tender, Non Distended and Normal Bowel Sounds
Extremities: Negative Edema
Neurological: AO x 3
Objective Data
Lab Data
Lab Results
07/15/24 05:24
07/14/24 05:52
PT 32.5 Sec (11.4-14.6) H 07/15/24 05:24
INR 3.18 07/15/24 05:24
APTT 49.7 Sec (23.4-35.0) H 07/13/24 13:09
Estimated Creat Clear 121 ml/min 07/14/24 05:52
Total Bilirubin 0.4 mg/dl (0.2-1.3) 07/13/24 13:09
AST 37 U/L (17-59) 07/13/24 13:09
ALT 27 U/L (0-50) 07/13/24 13:09
Alkaline Phosphatase 68 U/L (38-126) 07/13/24 13:09
Most recent labs reviewed.
07/03/24 CT facial bones: No evidence of discrete facial bone abnormality. Mild mucosal thickening of the left maxillary sinus, likely odontogenic in nature.
--- NOTE | 2024-07-15 10:04 | W.PN.UPDATE ---
Update Note
Progress Note Update
Continue IV iron while inpatient
okay for d/c from heme standpoint
f/u with Dr. Teague on 07/21, can arrange add'l IV iron if needed
outpt GI f/u next week
Will sign off
--- NOTE | 2024-07-15 11:01 | CM ---
Patient with Dx Heme + Stools without overt GI bleeding, Occult GI bleed 2/2 Supratherapeutic INR, Transfusion dependent iron deficiency. Room air. Receiving IV Fe Na Gluconate.
Met with patient who resides with his in a 1 story house with 1 EMETERIO.
The patient has been independent in ADLs and ambulation, recently using his SPC when feeling weak at home.
He denies any current weakness or balance issues with ambulation.
DME - SPC, CPAP
VN- prior remote, can't remember agency
No prior SNF
PCP - Nik Lr
Pharmacy - [facility] [place]
Offered VN and patient declined.
Patient says his doesn't drive so a friend will provide transport home.
No CM d/c needs identified.
Plan home.
--- NOTE | 2024-07-15 11:43 | PN.CDI ---
CDI
- -
CDI:
Physician Documentation Request
Admit Date: 07/13/24 16:37
Dear Doctor Tony,
Please review the following and provide your response in the progress notes.
Current documentation includes a diagnosis of hypotension.
Clinical Indicators:
ED, 07/13
#...profoundly hypotensive and pale appearing.
#...unknown source of recurrent anemia.
#Patient was markedly hypotensive in the emergency department,
#...refractory to aggressive IV fluid resuscitation thus required
#...emergent transfusion of O- blood products as he was
#...recurrently syncopized and in the ED.
#Interestingly his blood pressure improved dramatically upon initiation of the
#...first unit of blood and he remained clinically stable thereafter.
#Acute blood loss anemia (ABLA), Hemorrhagic shock
PN, 07/14
#Presenting on amoxicillin with a hemoglobin of less than 7 requiring blood transfusion.
Laboratory Tests
07/13/24 07/14/24 07/14/24
13:09 00:30 05:52
Hgb 5.8 L* 6.9 L* 7.5 L
07/15/24
05:24
Hgb 8.1 L
Selected Entries
07/13/24
13:15 07/13/24
13:19 07/13/24
13:30
Blood pressure 65/37 70/40 61/42
MAP (cuff-Justin Monitor) 47 49
07/13/24
14:02
Blood pressure 59/24
MAP (cuff-Justin Monitor) 34
#Transfusion, 07/13
#...3 units PRBCs
Please clarify the following:
Hemorrhagic shock was present on admission and is now resolved.
Hemorrhagic shock is still a likely, suspected, probable diagnosis
Hypotension - indicate type/etiology, such as idiopathic, neurogenic or orthostatic, post-procedural, postoperative, due to hemodialysis, chronic, drug induced (indicate drug), etc.
Other(please specify)
Use of terms such as suspected, likely, concern for, or probable (associated with a specific diagnosis that is being evaluated, monitored, or treated as if it exists) are acceptable and can be coded in the inpatient setting, when documented at the
time of discharge.
Thank you,
Jyoti Hess RN BSN CCDS
CDI Specialist
please contact via tiger text
Please use your independent medical judgment in providing your response.
[2024-07-15 12:36] LABS: Glucose - Point of Care 220 mg/dl (70-99)
[2024-07-15] MEDS: FERRLECIT 110 MG IV (12:46)
--- NOTE | 2024-07-15 16:49 | W.PN.HOSP.TC ---
Today's Communication/Plan
-
Coumadin 5 mg tonight
Assessment / Plan
Assessment / Plan
Anemia chronic, acute on, possibly GI
Supratherapeutic INR
INR >8.0-->5.01-->3.18
Mechanical AVR
CAD
IDDM
HTN
Dental infection
Presenting on amoxicillin with a hemoglobin of less than 7 requiring blood transfusion. Should be noted has required multiple blood transfusion since July 03 of this year. Has had multiple scopes at [place] and [place] without source of
bleeding. At this point in time hemoglobin stable hemodynamic stable. GI does not feel as repeat intervention with bidirectional scope is required and we will hold off at this time. If notable for bleeding then would consider a push enteroscopy
as he has completed bidirectional scope with video capsule endoscopy.
Hematology also following recommending outpatient follow-up
As he has a mechanical AVR would hold off on providing vitamin K antagonist as this would make him more hypercoagulable but will hasten the downtrend of the INR. Unable to change Coumadin to Eliquis because of mechanical AVR and additionally there
have not been enough studies to suggest benefit of oral anticoagulants with Eliquis/Xarelto and this subset population.
Supratherapeutic INR could be related to a CYP inhibitor with amoxicillin for which he was on for a dental infection. At this point amoxicillin has been held. Infectious diseases has been consulted. Would hold on/off on providing vitamin K
antagonist.
Will resume Coumadin tonight prior to dc as per usual Sunday dose of 5 mg. If INR tomorrow is within therapeutic range for Mechanical AV, should be okay to dc
Anticipated Discharge: Within 24 hours
Subjective/Interval History
-
Date of Service: July 15, 2024
Anxiously awaiting dc, but remains concerned that this not happen again
Objective Data
-
Labs:
Laboratory Results
07/15/24
05:24
WBC 4.8
Hgb 8.1 L
Hct 24.5 L
Plt Count 153
PT 32.5 H
INR 3.18
Vital Signs:
Vital Signs
Temp Pulse Resp BP Pulse Ox
97.7 F 107 15 123/61 100
07/15/24 11:20 07/15/24 14:00 07/15/24 14:00 07/15/24 14:00 07/15/24 12:30
I&O
07/14/24 07/15/24 07/16/24
06:59 06:59 06:59
Intake Total 1187 / 1187 480 / 480 110 / 110
Output Total 2500 / 2500 2950 / 2950 600 / 600
Balance -1313 / -1313 -2470 / -2470 -490 / -490
Review of Systems
-
History Source: Patient and Coordinated Provider
EENT: Reports No Symptoms Reported
Respiratory: Reports No Symptoms
Cardiac: Reports No Symptoms; Denies Chest Pain
Abdomen/GI: Reports No Symptoms; Denies Abdominal Pain
Physical Exam
-
General: Well Developed, Well Nourished, No Apparent Distress and Morbidly Obese
HEENT: Normocephalic, Atraumatic and Moist Mucous Membranes
Respiratory: Clear to Auscultation; Negative Wheezes, Rales or Rhonchi
Cardiac: Regular Rhythm and S1/S2 (aortic prosthetic heart sounds)
GI: Soft, Nontender and Nondistended
Skin: Warm and Dry
Neuro: Awake and Alert
--- NOTE | 2024-07-15 17:12 | PTCARENOTE ---
Patient frustrated, because he wants to go home. Patient is unplugging heart monitor and removing BP cuff. RN asked patient to leave heart monitor attached. Patient verbalized understanding. Plan of care reviewed with patient-restart Coumadin
tonight, INR in am if therapeutic, discharge tomorrow (per physician).
[2024-07-15] MEDS: COUMADIN 5 MG PO (17:46)
[2024-07-15] MEDS: PROTONIX IV (17:47)
[2024-07-15 17:54] LABS: Glucose - Point of Care 245 mg/dl (70-99)
[2024-07-15] MEDS: LIPITOR 10 MG PO (20:49)
[2024-07-15] MEDS: PROTONIX 40 MG PO (20:50)
[2024-07-15 22:02] LABS: Glucose - Point of Care 225 mg/dl (70-99)
--- NOTE | 2024-07-15 23:29 | PTCARENOTE ---
Caring for patient overnight. aaox3, pleasant. 6/10 pain in R jaw. PRN oxy & prn tylenol. VSS. NSR on monitor, RA. NO assessment changes. Will continue to monitor.
[2024-07-16] MEDS: ROXICODONE 5 MG PO ×3 (01:51→09:58)
[2024-07-16 01:59] VITALS: BP 109/54
--- NOTE | 2024-07-16 02:29 | PTCARENOTE ---
Pt transferred to W. Report given to RN. Pt stable.
[2024-07-16 02:44] VITALS: BP 139/62
--- NOTE | 2024-07-16 02:45 | PTCARENOTE ---
Pt arrived to room 414-02. Pt ambulated from wheelchair to bed. Pt AAOx3, VSS. Pt oriented to room, call linares placed within reach.
[2024-07-16 07:00] VITALS: BP 108/66
[2024-07-16 07:53] LABS: Glucose - Point of Care 193 mg/dl (70-99)
[2024-07-16 08:05] LABS: INR 2.16
[2024-07-16] MEDS: CELEXA 20 MG PO (08:22)
[2024-07-16] MEDS: PROTONIX 40 MG PO (08:22)
[2024-07-16 08:23] LABS: % Basophils 0.2 % (0-2); % Eosinophils 0.6 % (0-6); % Immature Granulocytes 1.1 % (0-0.5); % Lymphocytes 27.7 % (20.5-51.1); % Monocytes 7.2 % (1.7-9.3); % Neutrophils 63.2 % (42.2-75.2); Absolute Immature Granulocytes 0.1 10^3/uL (0-0.05); Absolute Lymphocytes 1.3 10^3/uL (1.2-3.4); Absolute Monocytes 0.3 10^3/uL (0.1-0.6); Hematocrit 26.3 % (39.0-52.0); Hemoglobin 8.6 g/dL (13.0-18.0); Mean Corp Hgb Conc. 32.7 g/dL (33.0-37.0); Mean Corpuscular Hgb 29.9 pg (27.0-31.0); Mean Corpuscular Volume 91.3 fL (80.0-94.0); Mean Platelet Volume 9.6 fL (7.4-10.4); Nucleated Red Blood Cells % 0.4 % (-); Platelet Count 188 10^3/uL (130-400); Red Blood Cell Count 2.88 10^6/uL (4.70-6.10); Red Cell Dist. Width 17.4 % (11.5-14.5); White Blood Cell Count 4.7 10^3/uL (4.8-10.8)
[2024-07-16] MEDS: NOVOLOG FLEXPEN-MODERATE RESISTANCE 1 UNITS SC (08:41)
--- NOTE | 2024-07-16 10:25 | CM ---
Patient seen bedside.
Denies home care needs.
Spouse will transport.
Plan: home no needs.
--- NOTE | 2024-07-16 14:09 | W.PN.HOSP.TC ---
Today's Communication/Plan
-
Discharge home today
Assessment / Plan
Assessment / Plan
NAD, resting comfortably in bed
Scleral anicteric
Moist mucous membranes
No JVD
CTA bilateral
Normal S1-S2
Morbidly obese, soft nontender nondistended bowel sounds active
No peripheral pitting edema
Moves extremities spontaneously
AAOx3
Anemia chronic, acute on, possibly GI
Supratherapeutic INR
INR >8.0-->5.01-->3.18
Mechanical AVR
CAD
IDDM
HTN
Dental infection
Presenting on amoxicillin with a hemoglobin of less than 7 requiring blood transfusion. Should be noted has required multiple blood transfusion since July 03 of this year. Has had multiple scopes at [place] and [place] without source of
bleeding. At this point in time hemoglobin stable hemodynamic stable. GI does not feel as repeat intervention with bidirectional scope is required and we will hold off at this time. If notable for bleeding then would consider a push enteroscopy
as he has completed bidirectional scope with video capsule endoscopy.
Hematology also following recommending outpatient follow-up
As he has a mechanical AVR would hold off on providing vitamin K antagonist as this would make him more hypercoagulable but will hasten the downtrend of the INR. Unable to change Coumadin to Eliquis because of mechanical AVR and additionally there
have not been enough studies to suggest benefit of oral anticoagulants with Eliquis/Xarelto and this subset population.
Supratherapeutic INR could be related to a CYP inhibitor with amoxicillin for which he was on for a dental infection. At this point amoxicillin has been held. Infectious diseases has been consulted. Would hold on/off on providing vitamin K
antagonist.
Has mechanical AVR valve. INR improved. Resumed on Coumadin. Continue 3 tablets of 2.5 mg Coumadin daily. Outpatient cardiology follow-up.
Anticipated Discharge: Today
Subjective/Interval History
-
Date of Service: July 16, 2024
Seen and examined. No new complaints. No acute overnight events.
Hemoglobin stable. Without evidence of bleeding. Denies dark tarry stools, blood in stool, blood in urine, epistaxis, hemoptysis, hematemesis
Understands INR is 2.1. Need to repeat INR check tomorrow. Cardiology has reviewed how much Coumadin he should be taking for the next week which he states 3 Coumadin pills followed by 2. Outpatient cardiology follow-up.
Objective Data
-
Labs:
Laboratory Results
07/16/24
07:38
WBC 4.7 L
Hgb 8.6 L
Hct 26.3 L
Plt Count 188 D
PT 24.0 H
INR 2.16
Vital Signs:
Vital Signs
Temp Pulse Resp BP Pulse Ox
97.6 F 86 16 108/66 94
07/16/24 07:00 07/16/24 07:00 07/16/24 07:00 07/16/24 07:00 07/16/24 07:00
I&O
07/15/24 07/16/24 07/17/24
06:59 06:59 06:59
Intake Total 480 / 480 110 / 110
Output Total 2950 / 2950 600 / 600
Balance -2470 / -2470 -490 / -490
--- NOTE | 2024-07-17 08:41 | PN.CDI ---
CDI
- -
CDI:
Physician Documentation Request
Admit Date: 07/13/24 16:37
Dear Doctor Tony,
Please review the following and provide your response in the progress notes.
Clinical Indicators:
PN, 07/16
#Anemia chronic, acute on, possibly GI
#Supratherapeutic INR
#INR >8.0-->5.01-->3.18
#Mechanical AVR
#Unable to change Coumadin to Eliquis because of mechanical AVR ...
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
#...with amoxicillin for which he was on for a dental infection.
#...At this point amoxicillin has been held.
#...hold on/off on providing vitamin K antagonist.
Please clarify the relationship, if any, between these conditions:
Yes, Anemia/GI bleed is enhanced by/associated with/due to Coumadin/Amoxicillin.
No, Anemia/GI bleed is not enhanced by/associated with/due to Coumadin/Amoxicillin but it is due to ___. (Please specify)
Other(please specify)
Use of terms such as suspected, likely, concern for, or probable (associated with a specific diagnosis that is being evaluated, monitored, or treated as if it exists) are acceptable and can be coded in the inpatient setting, when documented at the
time of discharge.
Thank you,
Jyoti Hess [employer]
CDI Specialist
please contact via tiger text
Please use your independent medical judgment in providing your response.
--- NOTE | 2024-07-17 12:21 | W.DCSUMMARY ---
Discharge Summary
Discharge Data
Date of Admission: 07/13/24
Date of Discharge: 07/17/24
-
Pending Results: No
Hospital Course
Acute blood loss anemia (ABLA), Hemorrhagic shock
Yes, Anemia/GI bleed is enhanced by/associated with/due to Coumadin/Amoxicillin.
Presented with symptomatic anemia with a hemoglobin of 5.8 and INR of 8.0. Received multiple units of FFP�2 units and PRBCs�3 units. Was evaluated by cardiology and gastroenterology as well as infectious diseases. Recently had full GI workup to
rule out GI bleed for which she underwent a upper endoscopy colonoscopy and video capsule endoscopy without evidence/findings of bleed. Therefore GI recommended outpatient follow-up unless if overt bleeding has been reported and at that point would
consider doing push enteroscopy. However this was not the case. Hemoglobin after blood transfusions have been stable, day of discharge hemoglobin 8.6. Hemodynamically stable.
Was evaluated by cardiology as there is a known mechanical valve. Presented with supratherapeutic INR in the eights. This was believed to be related to amoxicillin use after dental procedure. This was discontinued and recommended not to use any
further. Infectious diseases was consulted for this and recommended no further antibiotics required no need to transition to different oral agent as completed course. Did require 2 units of FFP. INR on discharge today 2.1. Cardiology recommended
resuming home dose Coumadin. Cardiology will set up INR check for and adjust Coumadin if needed at that point.
Will need to follow-up with outpatient PCP, GI, cardiology. Prior to any further dental procedures or procedures requiring antibiotics with discussed with cardiology and PCP
Discharge Plan
-
Patient Disposition: Home (Routine Discharge)
Discharge Diagnosis/Procedures: Symptomatic anemia
Diet: As tolerated
Activity: No restrictions
Driving Restrictions: As prior to admission
Blood Work: INR check in 1 day
Activity Restrictions/Additional Instructions:
Presented with symptomatic anemia with a hemoglobin of 5.8 and INR of 8.0. Received multiple units of FFP�2 units and PRBCs�3 units. Was evaluated by cardiology and gastroenterology as well as infectious diseases. Recently had full GI workup to
rule out GI bleed for which she underwent a upper endoscopy colonoscopy and video capsule endoscopy without evidence/findings of bleed. Therefore GI recommended outpatient follow-up unless if overt bleeding has been reported and at that point would
consider doing push enteroscopy. However this was not the case. Hemoglobin after blood transfusions have been stable, day of discharge hemoglobin 8.6. Hemodynamically stable.
Was evaluated by cardiology as there is a known mechanical valve. Presented with supratherapeutic INR in the eights. This was believed to be related to amoxicillin use after dental procedure. This was discontinued and recommended not to use any
further. Infectious diseases was consulted for this and recommended no further antibiotics required no need to transition to different oral agent as completed course. Did require 2 units of FFP. INR on discharge today 2.1. Cardiology recommended
resuming home dose Coumadin. Cardiology will set up INR check for and adjust Coumadin if needed at that point.
Will need to follow-up with outpatient PCP, GI, cardiology. Prior to any further dental procedures or procedures requiring antibiotics with discussed with cardiology and PCP
Instructions: Anemia caused by low iron, Warfarin and your diet
Referrals:
Nik Lr MD [Family Provider] -
Additional Discharge Medication Instructions: Stop amoxacillin
Stop Aspirin
Start pantoprazole 40mg Twice a day
Prescriptions:
New
pantoprazole [address] for susp in packet
40 mg PO DAILY 14 Days Qty: 30 0RF
Continued
metformin 1,000 MG tablet
1,000 mg PO BID
carvedilol 6.25 MG tablet
6.25 mg PO BID
warfarin 2.5 mg Tablet
7.5 mg PO SUMOWETHFRSA
citalopram [Celexa] 20 mg Tablet
20 mg PO DAILY
glyburide 5 mg tablet
5 mg PO BID
albuterol sulfate 90 mcg/actuation Hfa Aerosol Inhaler
2 puff INHALATION R Q6HPRN PRN (Reason: sob/wheezing)
lisinopril 2.5 mg Tablet
2.5 mg PO DAILY
atorvastatin 10 mg tablet
10 mg PO HS
indapamide 2.5 mg tablet
2.5 mg PO DAILYPRN PRN (Reason: feet swelling)
warfarin 2.5 mg tablet
5 mg PO TU
amlodipine 5 mg tablet
5 mg PO DAILY
ferrous sulfate 325 mg (65 mg iron) tablet
325 mg PO DAILY
folic acid 1 mg Tablet
1 mg PO DAILY
Visbiome 112.5 billion cell Capsule
1 cap PO BID
benzocaine 10 % Gel
1 applic MUCOUS MEMBRANE BID
hydrocodone-acetaminophen 7.5-300 mg Tablet
1 tab PO Q6HPRN PRN (Reason: severe tooth pain)
Magic Mouth Wash
15 ml mucous membrane BID
Discontinued
aspirin 81 MG tablet,delayed release (DR/EC)
81 mg PO DAILY
amoxicillin 500 mg capsule
500 mg PO Q8H
Discharge Orders:
Discharge Patient (As Directed); Ordered 07/16/24
Ordered By: Darek Jimenez
Discharge Date and Time
Discharge Date/Time: 07/16/24 10:58
Print Language: ROMANIAN
== END 2024-07-16 10:58 | disposition home or self-care (01) | DRG 811 ==
LOC: 4 WEST ACU 16:37
PROVIDERS: Internal Medicine; Nurse Practitioner Adult Health; Physician Assistant; ADMITTING PHYSICIAN Internal Medicine; ATTENDING PHYSICIAN Hospitalist; CONSULT PHYSICIAN Internal Medicine Infectious Disease; EMERGENCY PHYSICIAN Emergency Medicine; FAMILY PHYSICIAN Family Medicine; OTHER PHYSICIAN Internal Medicine; OTHER PHYSICIAN Internal Medicine Hematology & Oncology; OTHER PHYSICIAN Student in an Organized Health Care Education/Training Program
PROC: 30233N1 Transfusion of Nonautologous Red Blood Cells into Peripheral Vein, Percutaneous Approach (ICD-10-PCS; 2024-07-13)
PROC: 30233K1 Transfusion of Nonautologous Frozen Plasma into Peripheral Vein, Percutaneous Approach (ICD-10-PCS; 2024-07-13)
DX: D62 Acute posthemorrhagic anemia (principal); R57.8 Other shock; I42.9 Cardiomyopathy, unspecified; Z68.41 Body mass index [BMI] 40.0-44.9, adult; D68.32 Hemorrhagic disorder due to extrinsic circulating anticoagulants; I11.0 Hypertensive heart disease with heart failure; I50.9 Heart failure, unspecified; D50.9 Iron deficiency anemia, unspecified; E11.9 Type 2 diabetes mellitus without complications; E66.9 Obesity, unspecified; I35.0 Nonrheumatic aortic (valve) stenosis; J44.9 Chronic obstructive pulmonary disease, unspecified; Z95.2 Presence of prosthetic heart valve; I69.398 Other sequelae of cerebral infarction; T45.515A Adverse effect of anticoagulants, initial encounter; T46.4X5A Adverse effect of angiotensin-converting-enzyme inhibitors, initial encounter; H54.61 Unqualified visual loss, right eye, normal vision left eye; E78.00 Pure hypercholesterolemia, unspecified; F17.200 Nicotine dependence, unspecified, uncomplicated; F41.9 Anxiety disorder, unspecified; G47.33 Obstructive sleep apnea (adult) (pediatric); I25.10 Atherosclerotic heart disease of native coronary artery without angina pectoris; K04.7 Periapical abscess without sinus; R29.6 Repeated falls; Z91.81 History of falling; Z79.82 Long term (current) use of aspirin; Z79.84 Long term (current) use of oral hypoglycemic drugs; Z79.899 Other long term (current) drug therapy; Z87.19 Personal history of other diseases of the digestive system; Z86.010 Personal history of colon polyps; Z79.01 Long term (current) use of anticoagulants; Z95.1 Presence of aortocoronary bypass graft; Z95.5 Presence of coronary angioplasty implant and graft; Z88.8 Allergy status to other drugs, medicaments and biological substances; Z82.49 Family history of ischemic heart disease and other diseases of the circulatory system
CPT/HCPCS: 36430; 80048; 80053; 82728; 82962; 83036; 83540; 83550; 85014; 85018; 85025; 85027; 85610; 85730; 86850; 86900; 86901; 86920; 93005; 93306; 96361; 96374; 99291; 99292; J2916; P9016; P9059; Q9950

== ENCOUNTER → 2025-01-26 15:21 | Outpatient (REF) | payer OTHER, SELFPAY ==
[2025-01-26 13:50] LABS: % Basophils 0.4 % (0-2); % Eosinophils 2.8 % (0-6); % Immature Granulocytes 0.4 % (0-0.5); % Lymphocytes 21.2 % (20.5-51.1); % Monocytes 8.9 % (1.7-9.3); % Neutrophils 66.3 % (42.2-75.2); Absolute Eosinophils 0.2 10^3/uL (0-0.7); Absolute Lymphocytes 1.2 10^3/uL (1.2-3.4); Absolute Monocytes 0.5 10^3/uL (0.1-0.6); Absolute Neutrophils 3.8 10^3/uL (1.4-6.5); Hematocrit 40.3 % (39.0-52.0); Hemoglobin 14.1 g/dL (13.0-18.0); Mean Corpuscular Hgb 33.1 pg (27.0-31.0); Mean Corpuscular Volume 94.6 fL (80.0-94.0); Mean Platelet Volume 8.7 fL (7.4-10.4); Platelet Count 164 10^3/uL (130-400); Red Blood Cell Count 4.26 10^6/uL (4.70-6.10); Red Cell Dist. Width 13.1 % (11.5-14.5); White Blood Cell Count 5.7 10^3/uL (4.8-10.8)
== END ==
LOC: OIDL 15:21
PROVIDERS: ATTENDING PHYSICIAN Internal Medicine Hematology & Oncology
DX: D50.9 Iron deficiency anemia, unspecified (principal)
CPT/HCPCS: 85025

== ENCOUNTER → 2025-03-23 14:49 | Outpatient (REF) | payer OTHER, SELFPAY ==
[2025-03-23 10:22] LABS: % Basophils 0.5 % (0-2); % Eosinophils 3.6 % (0-6); % Immature Granulocytes 0.3 % (0-0.5); % Monocytes 6.9 % (1.7-9.3); % Neutrophils 72.7 % (42.2-75.2); Absolute Eosinophils 0.2 10^3/uL (0-0.7); Absolute Monocytes 0.4 10^3/uL (0.1-0.6); Absolute Neutrophils 4.7 10^3/uL (1.4-6.5); Hematocrit 39.6 % (39.0-52.0); Hemoglobin 14.1 g/dL (13.0-18.0); Mean Corp Hgb Conc. 35.6 g/dL (33.0-37.0); Mean Corpuscular Hgb 33.9 pg (27.0-31.0); Mean Corpuscular Volume 95.2 fL (80.0-94.0); Mean Platelet Volume 9.2 fL (7.4-10.4); Platelet Count 174 10^3/uL (130-400); Red Blood Cell Count 4.16 10^6/uL (4.70-6.10); Red Cell Dist. Width 12.8 % (11.5-14.5); White Blood Cell Count 6.4 10^3/uL (4.8-10.8)
== END ==
LOC: OIDL 14:49
PROVIDERS: ATTENDING PHYSICIAN Internal Medicine Hematology & Oncology
DX: D50.9 Iron deficiency anemia, unspecified (principal)
CPT/HCPCS: 85025